=== PATIENT | male | born 1965 | race Caucasian/White ===

== ENCOUNTER 2019-12-11 20:42 | Inpatient (IN) | payer SELFPAY ==
[2019-12-11 21:04] VITALS: BMI 23.7
--- NOTE | 2019-12-11 21:16 | PDOC ---
Documentation entered by Anastasia Wakefield SCRIBE, acting as scribe for Rebeka Seo MD. Rebeka Seo MD: This documentation has been prepared by the scribe, Anastasia Wakefield SCRIBE, under my direction and personally reviewed by me in its entirety. I confirm that the documentation accurately reflects all work, treatment, procedures, and medical decision making performed by me. Attending Attestation - Resident Resident Name: Savanah Sweet - ED Attending Attestation I have performed the following: I have examined & evaluated the patient, The case was reviewed & discussed with the resident, I agree w/resident's findings & plan, Exceptions are as noted - HPI HPI: 54-year-old male brought in by ambulance from home for swelling of both hands and his feet. HPI he stated that he was busy cutting trees last Tuesday and on had pain and took 8 tablets of Tylenol that was 650 mg each. Then on Tuesday he started to see swelling in his hands and then later in his feet ROS he denies fever or chills or nausea or vomiting or diarrhea shortness of breath or chest pain Allergies: NKDA 12/11/19 21:14 12/11/19 21:15 - Physicial Exam PE: 12/11/19 21:16 wnwd 54 yo male p/w swollen hands and feet head ncat neck no jvd lungs cta b/l cvs [id number] abdomen no tenderness Extremities hand are both edematous, no erythema, no lesions, no rash. 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 [employer] 12/11/19 21:31 he does not see a physician ekg Sinus tachy@ 107 with mxHeros,inc rbbb 12/11/19 23:35 Review of labs reveal hyponatremia, elevated BUN,elevated lfts, crp=19 12/12/19 00:05 pt has now low grade fever, IV tylenol given Both Ferritin and LDH are elevated repeat k=3.9 COVID swab ordered and pt will be admitted 12/12/19 01:02 12/12/19 01:07 Concern for inflammatory/autoimmune illness Discharge - Discharge Information Problems reviewed: Yes Clinical Impression/Diagnosis: Bilateral hand swelling, Pulmonary HTN Acute respiratory failure Qualifiers: Respiratory failure complication: hypoxia Qualified Code(s): J96.01 - Acute respiratory failure with hypoxia RLL pneumonia Qualifiers: Pneumonia type: due to unspecified organism Qualified Code(s): J18.9 - Pneumonia, unspecified organism Condition: Improved - Admission Yes - Follow up/Referral - Patient Discharge Instructions - Post Discharge Activity
--- NOTE | 2019-12-11 22:06 | PDOC ---
History of Present Illness - General Chief Complaint: Edema Stated Complaint: ALLERGIC REACTION Time Seen by Provider: 12/11/19 20:47 - History of Present Illness Initial Comments: Pt is a 54yo M with no significant PMH who presents with swelling. Pt states that he took 9-10 650mg Tylenol tablets on because he was in a lot of pain following a hard day of work on Tuesday. States that he noticed b/l hand swelling initially on Tuesday, followed by b/l feet swelling on Tuesday. States that he called his family doctor in [place] on Tuesday who told him the swelling should go away on its own. States that today, he was immobile in bed all day, which prompted his call for an ambulance today. States the his whole body feels stiff associated with ankle and wrist stiffness with lower back stiffness. Reports that he was unable to eat or drink today due to his immobility. States that his urine today was dark. Denies any f/c, SOB, mouth or throat swelling, abdominal pain, n/v, diarrhea/constipation, melena/hematoche selena, dysuria, hematuria. 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 [employer] Review of Systems CONSTITUTIONAL:denies fever, chills, diaphoresis, generalized weakness, loss of appetite HEENT:denies rhinorrhea, nasal congestion, sore throat, throat swelling, difficulty swallowing, mouth swelling, ear pain, eye pain, visual Changes; denies change in voice CARDIOVASCULAR:denies chest pain, syncope, palpitations, lightheadedness, peripheral edema RESPIRATORY:denies cough, shortness of breath, wheezing GASTROINTESTINAL: denies abdominal pain, nausea, vomiting, diarrhea, constipation, melena, hematochezia GENITOURINARY:denies dysuria, frequency, urgency, hesitancy, hematuria, flank pain MUSCULOSKELETAL: reports diffuse stiffness, back pain; denies myalgia, arthralgia HEMATOLOGIC/IMMUNOLOGIC:denies easy bleeding, easy bruising ENDOCRINE: denies unexplained weight gain, unexplained weight loss NEUROLOGIC:denies headache, loss of consciousness, focal weakness or paresthesias, dizziness, unsteady gait, mental status changes, bladder or bowel incontinence SKIN:denies rash, itching, pallor Physical Exam General: awake, alert, fully oriented, in mild distress, well developed, well nourished Head: normocephalic, atraumatic Eyes: PERRL, EOMI, anicteric sclera, conjunctiva clear ENT: hearing grossly normal, nares patent, oropharynx clear without exudates. No nasal congestion, Moist mucous membranes, no lip/tongue swelling Neck: supple, normal ROM, no LAD, JVD or masses, no stridor Lung: equal breath sounds b/l, CTA b/l, no crackles, wheezes; no distress, speaks full sentences Heart: tachycardic, normal S1, S2, no murmurs, rubs, gallops Abdomen: soft, non tender, normoactive bowel sounds, no guarding, rebound, masses Extremities: limited active ROM about b/l hands, radial/DP/PT pulses 2+ and symmetric Neuro: moves all extremities, normal speech, sensation intact Skin: flushing appreciated at neck, warm, edematous, erythematous in b/l hands up to wrists and b/l feet up to ankles. Past History - Medical History Allergies/Adverse Reactions: Allergies Allergy/AdvReac Type Severity Reaction Status Date / Time No Known Allergies Allergy Verified 12/11/19 22:57 Home Medications: Ambulatory Orders NK [No Known Home Medication] 12/12/19 - Psycho-Social/Smoking History Smoking History: Never smoked Have you smoked in the past 12 months: No Information on smoking cessation initiated: No - Substance Abuse Hx (Audit-C & DAST Scrn) How often the patient has a drink containing alcohol: Monthly or less Number of drinks the patient has on a typical day: 1 or 2 How often the patient has six or more drinks on one occasion: Less than monthly Score: In Men: 4 or > Positive; In Women: 3 or > Positive: 2 Screen Result (Pos requires Nsg. Audit-10AR): Negative In the last yr the pt used illegal drug/Rx for NonMed reason: No Score: Yes response is considered Positive: 0 Screen Result (Positive result requires Nsg. DAST-10): Negative *Physical Exam - Vital Signs Last Vital Signs Temp Pulse Resp BP Pulse Ox 98.1 F 110 H 18 134/99 96 12/11/19 20:45 12/11/19 20:45 12/11/19 20:45 12/11/19 20:45 12/11/19 20:45 ED Treatment Course - LABORATORY CBC & Chemistry Diagram: 12/14/19 06:45 12/14/19 06:45 Medical Decision Making - Medical Decision Making Pt is a 54yo M with no significant PMH who presents with swelling of b/l hands and feet Vital Signs Period Temp Pulse Resp BP Sys/Avila Pulse Ox Last 24 Hr 98.1 F 110 18 134/99 96 DDx: allergic reaction Plan: labs, EKG EKG: sinus tachycardia with occasional PVC. Incomplete RBBB, L anterior fascicular block; HR 107bpm, AR 168ms, QRS 110ms, QTc 472ms Pt signed out to night team, pending labs, likely admission Discharge - Discharge Information Problems reviewed: Yes Clinical Impression/Diagnosis: Bilateral hand swelling, Pulmonary HTN Acute respiratory failure Qualifiers: Respiratory failure complication: hypoxia Qualified Code(s): J96.01 - Acute respiratory failure with hypoxia RLL pneumonia Qualifiers: Pneumonia type: due to unspecified organism Qualified Code(s): J18.9 - Pneumonia, unspecified organism Condition: Improved - Admission Yes - Follow up/Referral - Patient Discharge Instructions - Post Discharge Activity
--- NOTE | 2019-12-11 22:11 | PDOC ---
*Physical Exam - Vital Signs Last Vital Signs Temp Pulse Resp BP Pulse Ox 98.1 F 110 H 18 134/99 96 12/11/19 20:45 12/11/19 20:45 12/11/19 20:45 12/11/19 20:45 12/11/19 20:45 ED Treatment Course - LABORATORY CBC & Chemistry Diagram: 12/11/19 21:42 12/11/19 23:50 Medical Decision Making - Medical Decision Making 12/11/19 22:10 EKG - sinus tachycardia w occasional PVCs, RBBB, L anterior fascicular block, HR 107, QTc 472, no ST changes CXR - no acute pathology Chest CT - dilated main pulm artery 3.7cm suggesting pulm HTN, RLL atelectasis vs PNA WBC 12 w L shift --- Signed out from day team 54yo M with no significant PMH who presents with 5d swelling/stiffness of b/l hands and feet after taking tylenol. Neurovascular intact Autoimmune vs infectious vs covid vs liver/kidney dysfunction (nephrotic?). elevated inflammatory markers. Also No sign of tylenol/aspirin overdose vs UTI (clean) 1. Acute respiratory failure 2/2 RLL PNA, desat 93 on RA 2. hypoNa +amphetamines, opioid Given 2L NS, tylenol, 2 morphine, azithromycin, rocephin. Started 3L NC Admit m/s for acute respiratory failure requiring O2, RLL PNA, hand/feet swelling, suspected pulm arterial HTN No PCP Discharge - Discharge Information Problems reviewed: Yes Clinical Impression/Diagnosis: Bilateral hand swelling, Pulmonary HTN Acute respiratory failure Qualifiers: Respiratory failure complication: hypoxia Qualified Code(s): J96.01 - Acute respiratory failure with hypoxia RLL pneumonia Qualifiers: Pneumonia type: due to unspecified organism Qualified Code(s): J18.9 - Pneumonia, unspecified organism Condition: Improved - Follow up/Referral - Patient Discharge Instructions - Post Discharge Activity
[2019-12-11] MEDS ORDERED: LACTATED RINGERS SOLUTION 1000 ML INFUS.BAG IV ONE (22:45)
[2019-12-11 22:55] LABS: BASO % 0.2 % (0-2.0); HEMATOCRIT 43.1 % (35.4-49); HEMOGLOBIN 14.4 GM/dL (11.7-16.9); LYMPH % 4.9 % (8-40); MCH 30.4 pg (25.7-33.7); MCHC 33.4 g/dl (32.0-35.9); MEAN CELL VOLUME 90.9 fl (80-96); MEAN PLT VOLUME 8.9 fl (7.5-11.1); MONO % 9.4 % (3.8-10.2); NEUT % 85.5 % (42.8-82.8); PLATELET COUNT 238 K/MM3 (134-434); RBC 4.74 M/mm3 (4.00-5.60); RDW 14.4 % (11.9-15.9); WHITE BLOOD COUNT 12.9 K/mm3 (4.0-10.0)
[2019-12-11] MEDS ORDERED: MORPHINE SULFATE 2 MG/ML VIAL IVPUSH ONE (22:55)
[2019-12-11] MEDS ORDERED: MORPHINE SULFATE 2 MG/ML VIAL ONE (22:58)
[2019-12-11 23:26] LABS: ALBUMIN 2.1 g/dl (3.4-5.0); ALK PHOS 75 U/L (45-117); BILIRUBIN,TOTAL 1.4 mg/dL (0.2-1); BLOOD UREA NITROGEN 30.7 mg/dL (7-18); CALCIUM 8.4 mg/dL (8.5-10.1); CHLORIDE 90 mmol/L (98-107); CO2 29 mmol/L (21-32); CREATININE 0.8 mg/dL (0.55-1.3); GLUCOSE,RANDOM 111 mg/dL (74-106); SGOT/AST 98 U/L (15-37); SODIUM 127 mmol/L (136-145); TOT PROT 6.4 g/dl (6.4-8.2)
[2019-12-11 23:36] LABS: ANION GAP 8 MMOL/L (8-16); SGPT/ALT 45 U/L (13-61)
[2019-12-11 23:37] LABS: POTASSIUM 6.8 mmol/L (3.5-5.1)
[2019-12-12] MEDS ORDERED: LACTATED RINGERS SOLUTION 1000 ML INFUS.BAG IV ONE
[2019-12-12] MEDS ORDERED: ACETAMINOPHEN 1000 MG/100 ML VIAL (NON FORMULARY) IVPB ONE (00:01)
[2019-12-12] MEDS ORDERED: SODIUM CHLORIDE 0.9% 500 ML INFUS.BAG IV ONE (00:06)
[2019-12-12] MEDS ORDERED: ACETAMINOPHEN INJECTION 100 ML IVPB ONE (00:08)
[2019-12-12 00:50] LABS: BLOOD UREA NITROGEN 29.2 mg/dL (7-18); CALCIUM 8.1 mg/dL (8.5-10.1); CREATININE 0.7 mg/dL (0.55-1.3); POTASSIUM 3.9 mmol/L (3.5-5.1)
[2019-12-12 00:50] LABS: EPI CELLS 13 /uL (0-25.1); HYALINE CASTS 5 /uL (0-3.1); PH,URINE 5.5 (5.0-8.0); URINE APPEARANCE CLEAR; URINE BACTERIA 8 /uL (0-1359); URINE BILIRUBIN NEGATIVE (NEGATIVE); URINE COLOR YELLOW; URINE GLUCOSE (UA) NEGATIVE (NEGATIVE); URINE KETONE NEGATIVE (NEGATIVE); URINE LEUK ESTERASE NEGATIVE (NEGATIVE); URINE NITRITE NEGATIVE (NEGATIVE); URINE PROTEIN 2+ (NEGATIVE); URINE RBC 5 /uL (0-23.9); URINE WBC 8 /uL (0-25.8)
[2019-12-12 00:57] LABS: COCAINE, UR NEGATIVE ng/ml (CUTOFF=300); PHENCYCLIDINE,URINE NEGATIVE ng/ml (CUTOFF=25); URINE BARBITURATES NEGATIVE ng/ml (CUTOFF=200)
[2019-12-12 01:13] LABS: METHADONE, UR NEGATIVE ng/ml (CUTOFF=300); URINE BENZODIAZEPINES NEGATIVE ng/ml (CUTOFF=200)
[2019-12-12 01:42] LABS: OPIATES, URI POSITIVE ng/ml (CUTOFF=300); URINE AMPHETAMINES POSITIVE ng/ml (CUTOFF=500)
[2019-12-12] MEDS ORDERED: CEFTRIAXONE 1 GM in DEXTROSE 5%-WATER - 100 ML IVPB ONE (04:08)
[2019-12-12] MEDS ORDERED: AZITHROMYCIN IVPB 500 MG in DEXTROSE 5%-WATER - 250 ML IVPB ONE (04:08)
[2019-12-12] MEDS ORDERED: DEXAMETHASONE SOD PHOSPHATE 10 MG/1 ML VIAL IVPUSH ONE (04:23)
[2019-12-12] MEDS ORDERED: AZITHROMYCIN IVPB 500 MG/250 ML BAG IVPB ONE (05:02)
[2019-12-12] MEDS ORDERED: CEFTRIAXONE 1 GM/50 ML BAG ONE ×3 (05:03→09:28)
[2019-12-12] MEDS ORDERED: DEXAMETHASONE SOD PHOSPHATE 10 MG/1 ML VIAL ONE (05:03)
--- NOTE | 2019-12-12 06:08 | HP ---
CHIEF COMPLAINT: B/L HAND AND FEET SWELLING X 5 DAYS PCP: NONE HISTORY OF PRESENT ILLNESS: Patient is 54yo M with no known PMHx now presenting with B/L hand and feet swelling of 5days duration following clearing and cutting of fallen large trees. Patient took 10 tabs of tylenol containing medication due to generalized body aches experienced a few hours after cutting down the trees. He had no intention of hurting himself when taking these tabs but did so because he had severe body aches. 24 hrs later, he noticed a gradual onset of b/l hand and feet swelling, progressive with associated pain and redness. Pain is aching, non radiating with a similar new pain in his lower back. All with a severity of 10/10 with no known relieving or aggravating factor. He also has generalized body stiffness >> on his back making him unable to walk. When asked, he notes that he has been lying down in bed most of the time and that his inability to work is not because of leg weakness but because his feet are too swollen and tender for him to stand. There is associated passage of coke coloured urine x 3days which he described as "the darkest urine he has ever seen in his life". There is no associated dysuria, frequency, urgency, incontinence, straining, hesitancy or passage of stones. Patient denies recent hx pf insect/animal bite, intake of any other medication, radiology or medical procedures,hx of fall. No hives, wheels, excoriations,excessive sweating,palpiation, SOB, chest pain, chest tightness,cough, wheezing,hemoptysis,weight loss, seizures, LOC, bluish discoloration of the skin, rash or hx of skin redness on sun exposure, itching, eye swelling/redness, facial swelling, neck swelling. No N/V, diarrhea, constipation, passage of black or fresh blood,abdominal pain, jaundice. No recent change in food, clothing, shoes or car, socks. There is no hx of similar condition nor known food, drug or latex allergy. ER course was notable for: (1) Azithromycin 500mg IVP (2)O2 therapy (3)Ceftriaxone 1g (4) Dexa 10mg IV push (5) 1000ml once (6)Acetaminophen 1000mg Recent Travel: None PAST SURGICAL HISTORY: None Social History: Smoking: None Alcohol: 2-3 bottles per sitting, drinks most weeks but not every week Drugs: Denies recreational drug use but has Amphetamine. and opiod in his urine. Opiod like from morphine administered in ER Allergies: None HOME MEDICATIONS: REVIEW OF SYSTEMS Negative except as noted above . Vital Signs - 24 hr 12/11/19 12/12/19 12/12/19 20:45 00:00 00:15 Temperature 98.1 F 100.2 F H Pulse Rate 110 H Pulse Rate [ 105 H Apical] Respiratory 18 18 Rate Blood Pressure 134/99 Blood Pressure 149/99 [Right Arm] O2 Sat by Pulse 96 100 99 Oximetry (%) 12/12/19 04:50 Temperature 99.8 F H Pulse Rate Pulse Rate [ 94 H Apical] Respiratory 16 Rate Blood Pressure Blood Pressure 134/93 [Right Arm] O2 Sat by Pulse 98 Oximetry (%) PHYSICAL EXAMINATION GENERAL: Awake, alert, and fully oriented, in acute painful distress. HEAD: Normal size and non tender EYES: sclera anicteric, conjunctiva= mild hyperemia NECK: Without lymphadenopathy, JVD, or masses. LUNGS: Vesicular breath sounds equal and b/l. No wheezes, and no crackles. No obvious signs of respiratory distress HEART: Regular rate and rhythm, normal S1 and S2 without murmur, rub or gallop. ABDOMEN: Soft,full, normoactive bowel sounds, non tender, no masses, no fluid thrill. No organomegaly MUSCULOSKELETAL: Hyperemic and Tenderness 10/10 b/l hands and feet, new onset tenderness lower back, no sacral edema or decubitus ulcer, No CVA . He finds it challenging to roll to the opposite site during back exam UPPER EXTREMITIES:Warm, well-perfused. hyperemic b/l hands and severely tender hands 10/10. 3+ edema limited to the hands LOWER EXTREMITIES:Warm, well-perfused. hyperemic and severely tender hands 10/10. 3+ edema limited to the feet NEUROLOGICAL: Cranial nerves II-XII intact. Normal speech. Gait and motor strength not performed because patient is unable to stand due to swollen feet and stiff back PSYCHIATRIC: Cooperative. Good eye contact. Appropriate mood and affect but in pain. SKIN: Warm, edematous no rashes. Laboratory Results - last 24 hr 12/11/19 12/11/19 12/11/19 21:42 21:42 21:42 WBC 12.9 H RBC 4.74 Hgb 14.4 Hct 43.1 MCV 90.9 MCH 30.4 MCHC 33.4 RDW 14.4 Plt Count 238 MPV 8.9 Absolute Neuts (auto) 11.0 H Neutrophils % 85.5 H Neutrophils % (Manual) 78.0 Band Neutrophils % 6.0 Lymphocytes % 4.9 L Lymphocytes % (Manual) 7.0 L Monocytes % 9.4 Monocytes % (Manual) 9 Eosinophils % 0.0 Eosinophils % (Manual) 0.0 Basophils % 0.2 Basophils % (Manual) 0.0 Myelocytes % (Man) 0 Promyelocytes % (Man) 0 Blast Cells % (Manual) 0 Nucleated RBC % 0 Metamyelocytes 0 Sodium 127 L Potassium 6.8 H* Chloride 90 L Carbon Dioxide 29 Anion Gap 8 BUN 30.7 H Creatinine 0.8 Est GFR (CKD-EPI)AfAm 119.04 Est GFR (CKD-EPI)NonAf 102.71 Random Glucose 111 H Calcium 8.4 L Ferritin Total Bilirubin 1.4 H AST 98 H ALT 45 Alkaline Phosphatase 75 LD Total Creatine Kinase 148 Troponin I < 0.02 C-Reactive Protein Total Protein 6.4 Albumin 2.1 L Urine Color Urine Appearance Urine pH Ur Specific Crivitz Urine Protein Urine Glucose (UA) Urine Ketones Urine Blood Urine Nitrite Urine Bilirubin Urine Urobilinogen Ur Leukocyte Esterase Urine WBC (Auto) Urine RBC (Auto) Urine Casts (Auto) U Epithel Cells (Auto) Urine Bacteria (Auto) Salicylates < 1.7 L Opiates Screen Methadone Screen Acetaminophen < 2.0 Barbiturate Screen Phencyclidine Screen Ur Amphetamines Screen MDMA (Ecstasy) Screen Benzodiazepines Screen Cocaine Screen U Marijuana (THC) Screen Alcohol, Quantitative < 3 12/11/19 12/11/19 12/12/19 21:42 23:50 00:22 WBC RBC Hgb Hct MCV MCH MCHC RDW Plt Count MPV Absolute Neuts (auto) Neutrophils % Neutrophils % (Manual) Band Neutrophils % Lymphocytes % Lymphocytes % (Manual) Monocytes % Monocytes % (Manual) Eosinophils % Eosinophils % (Manual) Basophils % Basophils % (Manual) Myelocytes % (Man) Promyelocytes % (Man) Blast Cells % (Manual) Nucleated RBC % Metamyelocytes Sodium 131 L Potassium 3.9 Chloride 94 L Carbon Dioxide 29 Anion Gap 8 BUN 29.2 H Creatinine 0.7 Est GFR (CKD-EPI)AfAm 125.75 Est GFR (CKD-EPI)NonAf 108.50 Random Glucose 113 H Calcium 8.1 L Ferritin 655.6 H Total Bilirubin AST ALT Alkaline Phosphatase LD Total 324 H Creatine Kinase Troponin I C-Reactive Protein > 19.0 H Total Protein Albumin Urine Color Yellow Urine Appearance Clear Urine pH 5.5 Ur Specific Crivitz 1.024 Urine Protein 2+ H Urine Glucose (UA) Negative Urine Ketones Negative Urine Blood Negative Urine Nitrite Negative Urine Bilirubin Negative Urine Urobilinogen 1.0 Ur Leukocyte Esterase Negative Urine WBC (Auto) 8 Urine RBC (Auto) 5 Urine Casts (Auto) 5 U Epithel Cells (Auto) 13 Urine Bacteria (Auto) 8 Salicylates Opiates Screen Methadone Screen Acetaminophen Barbiturate Screen Phencyclidine Screen Ur Amphetamines Screen MDMA (Ecstasy) Screen Benzodiazepines Screen Cocaine Screen U Marijuana (THC) Screen Alcohol, Quantitative 12/12/19 00:22 WBC RBC Hgb Hct MCV MCH MCHC RDW Plt Count MPV Absolute Neuts (auto) Neutrophils % Neutrophils % (Manual) Band Neutrophils % Lymphocytes % Lymphocytes % (Manual) Monocytes % Monocytes % (Manual) Eosinophils % Eosinophils % (Manual) Basophils % Basophils % (Manual) Myelocytes % (Man) Promyelocytes % (Man) Blast Cells % (Manual) Nucleated RBC % Metamyelocytes Sodium Potassium Chloride Carbon Dioxide Anion Gap BUN Creatinine Est GFR (CKD-EPI)AfAm Est GFR (CKD-EPI)NonAf Random Glucose Calcium Ferritin Total Bilirubin AST ALT Alkaline Phosphatase LD Total Creatine Kinase Troponin I C-Reactive Protein Total Protein Albumin Urine Color Urine Appearance Urine pH Ur Specific Crivitz Urine Protein Urine Glucose (UA) Urine Ketones Urine Blood Urine Nitrite Urine Bilirubin Urine Urobilinogen Ur Leukocyte Esterase Urine WBC (Auto) Urine RBC (Auto) Urine Casts (Auto) U Epithel Cells (Auto) Urine Bacteria (Auto) Salicylates Opiates Screen Positive A* Methadone Screen Negative Acetaminophen Barbiturate Screen Negative Phencyclidine Screen Negative Ur Amphetamines Screen Positive A* MDMA (Ecstasy) Screen Negative Benzodiazepines Screen Negative Cocaine Screen Negative U Marijuana (THC) Screen Negative Alcohol, Quantitative ASSESSMENT/PLAN: Patient is 54yo M with no known PMHx now presenting with B/L hand and feet swelling of 5days duration following clearing and cutting of fallen large trees which was followed by administration of 10 tabs of tylenol containing medication. #B/L HAND AND FEET SWELLING WITH PROTEINURIA AND HYPOALBUMINEMIA TO R/O INFECTION B/L leg and hand swelling Proteinuria 2+, BUN 29.2 Hx of contact with unknown trees Sudden onset Hypoalbuminemia: 2.1 Suspected RLL pneumonia on Chest CT HIV 4th AB screening Syphylis RPR Hepatitis Profile, Urine culture, Urine proten creatinine ratio Urine antigen for Strep pneumonia and legionella COVID markers assay: D dimer, LDH, CPK. ESR, Ferritin Doxycycline 100mg IV push bid IV Ceftriaxone daily Methylprednisolone 40mg IV bid Abd US Consult nephrology # ACUTE ALLERGY TO UNKNOWN SUBSTANCE vs Auntoimmune induced hemolysis Recent hx of contact with unknown trees New onset b/l hand and feet swelling Recent administration of 10 tabs of tylenol containing meds like percocet but patient not sure Elevated ferritin 655.6 Coke coloured urine x 5 days now clearing Total bilirubin 1.4 LDH 325 Hypoalbuminemia: 2.1 Hyperkalemia Hyponatremia CAROLYNE, Rheu factor, TSH Mg, PO4, K Consult rheumatology Patient may benefit from allergy test #FEN: IVF: LR NPO Monitor electrolyes and replete prn # DISPOSITION: Admit to floor Levonox 40mg SQ daily F/U pending lab results Visit type - Emergency Visit Emergency Visit: Yes ED Registration Date: 12/12/19 Care time: The patient presented to the Emergency Department on the above date and was hospitalized for further evaluation of their emergent condition. - New Patient This patient is new to me today: Yes Date on this admission: 12/12/19 - Critical Care Critical Care patient: No ATTENDING PHYSICIAN STATEMENT I saw and evaluated the patient. I reviewed the resident's note and discussed the case with the resident. I agree with the resident's findings and plan as documented. SUBJECTIVE: OBJECTIVE: ASSESSMENT AND PLAN:
[2019-12-12 06:51] LABS: BASO % 0.1 % (0-2.0); HEMATOCRIT 39.6 % (35.4-49); HEMOGLOBIN 13.4 GM/dL (11.7-16.9); MCH 30.5 pg (25.7-33.7); MCHC 33.8 g/dl (32.0-35.9); MEAN CELL VOLUME 90.2 fl (80-96); MEAN PLT VOLUME 8.2 fl (7.5-11.1); MONO % 8.5 % (3.8-10.2); NEUT % 86.4 % (42.8-82.8); PLATELET COUNT 215 K/MM3 (134-434); RBC 4.39 M/mm3 (4.00-5.60); RDW 14.6 % (11.9-15.9); WHITE BLOOD COUNT 12.7 K/mm3 (4.0-10.0)
--- NOTE | 2019-12-12 07:01 | PN ---
Teaching Attending Note Name of Resident: Maegan Mtz ATTENDING PHYSICIAN STATEMENT I saw and evaluated the patient. I reviewed the resident's note and discussed the case with the resident. I agree with the resident's findings and plan as documented. SUBJECTIVE: 54 years old M with no significant medical history presented to hospital with b/l hand and leg swelling and generalized body stiffness. According to patient he did a lot of yard work on last and after that he started having generalized body aches so he took 9-10 tablets of tylenol 650 mg. He started noticing b/l LE and UE swelling on tuesday which is progressively getting worse along with joint stiffness and some back pain. He aloso mentioned dark/madeline colored urine since then. he denies chest pain, SOB, rash,nausea,vomiting, fever, cough. He couldnt walk today due to joint pains and swelling so decided to come to ED OBJECTIVE: Last Vital Signs Temp Pulse Resp BP Pulse Ox 99.8 F H 94 H 16 134/93 98 12/12/19 04:50 12/12/19 04:50 12/12/19 04:50 12/12/19 04:50 12/12/19 04:50 General: normal built, NAD Head: normocephalic, atraumatic Eyes: PERRL, EOMI, anicteric sclera, conjunctiva clear ENT: hearing grossly normal, nares patent, oropharynx clear without exudates. No nasal congestion, Moist mucous membranes, no lip/tongue swelling Neck: supple, normal ROM, no LAD, JVD or masses, no stridor Lung: equal breath sounds b/l, CTA b/l, no crackles, wheezes; no distress, speaks full sentences Heart: tachycardic, normal S1, S2, no murmurs, rubs, gallops Abdomen: soft, non tender, normoactive bowel sounds, no guarding, rebound, masses Extremities: b/l hand and feet swelling, redness tender to palpation all joints of hands and feet, Feet edema extending to the legs Neuro: moves all extremities, normal speech, sensation intact ASSESSMENT AND PLAN: b/l hand, feet swelling with proteinuria and hypoalbuminemia r/o Nephrotic syndrome r/o autoimmune inflammatory disease r/o COVID infection Hyponatremia Hyperkalemia Suspected RLL pneumonia ( ON CT chest ) Admit to floor send Lipid panel, HIV, Urine proten creatinine ratio COVID markers LDH, D dimer, mg,phos, CPK. ESR, CAROLYNE, TSH, lyme titers IV solumedrol 40 BID Emperic antibiotics Iv ceftriaxone and doxycycline for now Nephrology and rheumatology eval hepatitis profile DVT ppx
[2019-12-12 07:14] LABS: BILIRUBIN,TOTAL 1.4 mg/dL (0.2-1); BLOOD UREA NITROGEN 26.1 mg/dL (7-18); CALCIUM 7.9 mg/dL (8.5-10.1); CREATININE 0.6 mg/dL (0.55-1.3); MAGNESIUM 2.2 mg/dL (1.8-2.4); PHOSPHOROUS 4.1 mg/dL (2.5-4.9); POTASSIUM 3.7 mmol/L (3.5-5.1); TOT PROT 5.5 g/dl (6.4-8.2)
[2019-12-12 08:55] LABS: BILIRUBIN,DIRECT 0.5 mg/dL (0.0-0.2)
[2019-12-12] MEDS ORDERED: PANTOPRAZOLE 40 MG TABLET ONE (09:28)
[2019-12-12] MEDS ORDERED: ENOXAPARIN NA (PORCINE) 40 MG/0.4 ML DISP.SYRIN SQ ONE ×2 (09:28→10:36)
[2019-12-12] MEDS ORDERED: ENOXAPARIN NA (PORCINE) 40 MG/0.4 ML DISP.SYRIN SQ SCH (10:00)
[2019-12-12] MEDS: CEFTRIAXONE 1 GM in DEXTROSE 5%-WATER - 50 ML IVPB SCH (10:04)
[2019-12-12] MEDS ORDERED: methylPREDNISolone NA SUCC 40 MG/1 ML VIAL ONE (10:11)
[2019-12-12] MEDS ORDERED: DOXYCYCLINE HYCLATE 100 MG VIAL ONE ×2 (10:11→22:33)
[2019-12-12] MEDS ORDERED: ENOXAPARIN NA (PORCINE) 80 MG/0.8 ML DISP.SYRIN SQ ONE (10:24)
[2019-12-12] MEDS: methylPREDNISolone NA SUCC 40 MG/1 ML VIAL IVPUSH SCH ×2 (10:35→22:48)
[2019-12-12] MEDS: PANTOPRAZOLE 40 MG TABLET PO SCH (10:35)
[2019-12-12] MEDS: DOXYCYCLINE INJECTION 100 MG in DEXTROSE 5%-WATER 100 ML IVPB SCH ×2 (10:35→22:47)
[2019-12-12 11:57] LABS: PLATELET ESTIMATE NORMAL
[2019-12-12] MEDS: SODIUM CHLORIDE 1,000 ML IV SCH ×2 (12:00→17:44)
--- NOTE | 2019-12-12 12:37 | CONSULT ---
Consult Consult Specialty:: Nephrology Reason for Consultation:: proteinuria - History of Present Illness Chief Complaint: hand and feet swelling History of Present Illness: Pt is a 54 year old male with no pmhx who presents to the ER with bilateral hand and feet swelling. He says he took about 9 or 10 tabs of 650mg tylenol on of last week. He noticed hand and foot swelling on Tuesday. He called his family doctor in [place] on Tuesday who recommended to wait and observe. He complains of associated weekness. He was found to have proteinuria. He was also found to have hyperkalemia. He denies shortness of breath or cough. He denies dysuria or hematuria. He says that his urine was dark. He denies taking any drugs or other meds. He denies allergies. - History Source History Provided By: Patient - Smoking History Smoking history: Never smoked Have you smoked in the past 12 months: No Home Medications - Allergies Allergies/Adverse Reactions: Allergies Allergy/AdvReac Type Severity Reaction Status Date / Time No Known Allergies Allergy Verified 12/11/19 22:57 - Home Medications Home Medications: Ambulatory Orders NK [No Known Home Medication] 12/12/19 Family Medical History Family History: Denies Review of Systems - Review of Systems Constitutional: reports: Loss of Appetite, Malaise, Weakness Eyes: reports: No Symptoms HENT: reports: No Symptoms Neck: reports: No Symptoms Cardiovascular: reports: No Symptoms Respiratory: reports: No Symptoms Gastrointestinal: reports: No Symptoms Genitourinary: reports: No Symptoms Musculoskeletal: reports: No Symptoms Integumentary: reports: No Symptoms Neurological: reports: No Symptoms Endocrine: reports: No Symptoms Hematology/Lymphatic: reports: No Symptoms Psychiatric: reports: No Symptoms Physical Exam Vital Signs: Vital Signs Temperature 99.8 F H 12/12/19 04:50 Pulse Rate 97 H 12/12/19 07:45 Respiratory Rate 20 12/12/19 07:45 Blood Pressure 147/110 H 12/12/19 07:45 O2 Sat by Pulse Oximetry (%) 97 12/12/19 07:45 Constitutional: Yes: Calm Eyes: Yes: Conjunctiva Clear HENT: Yes: Atraumatic Cardiovascular: Yes: S1, S2 Respiratory: Yes: CTA Bilaterally Gastrointestinal: Yes: Soft Renal/: Yes: WNL Edema: Yes (hands and feet) Neurological: Yes: Oriented Psychiatric: Yes: Oriented Labs: CBC, BMP 12/12/19 06:10 12/12/19 06:10 Laboratory Tests 12/11/19 12/11/19 12/11/19 21:42 21:42 21:42 WBC 12.9 H D-Dimer Sodium 127 L Potassium 6.8 H* BUN Creatinine 0.8 Calcium 8.4 L Ferritin Total Bilirubin Direct Bilirubin LD Total C-Reactive Protein > 19.0 H Urine Protein Ur Random Creatinine U Random Total Protein Protein/Creatinin Ratio Opiates Screen Ur Amphetamines Screen CAROLYNE Screen Syphilis Serology Lyme Screen IgG & IgM Lyme IgM 23 kDa Band Lyme IgM 39 kDa Band Lyme IgM 41 kDa Band COVID-19 (SUDHA) HIV 1&2 Ag/Ab, 4th Gen 12/11/19 12/12/19 12/12/19 23:50 00:22 00:22 WBC D-Dimer Sodium Potassium 3.9 BUN Creatinine 0.7 Calcium 8.1 L Ferritin 655.6 H Total Bilirubin Direct Bilirubin LD Total 324 H C-Reactive Protein Urine Protein 2+ H Ur Random Creatinine U Random Total Protein Protein/Creatinin Ratio Opiates Screen Positive A* Ur Amphetamines Screen Positive A* CAROLYNE Screen Syphilis Serology Lyme Screen IgG & IgM Lyme IgM 23 kDa Band Lyme IgM 39 kDa Band Lyme IgM 41 kDa Band COVID-19 (SUDHA) HIV 1&2 Ag/Ab, 4th Gen 12/12/19 12/12/19 12/12/19 05:20 06:10 06:10 WBC 12.7 H D-Dimer Sodium 131 L Potassium 3.7 BUN 26.1 H Creatinine 0.6 Calcium 7.9 L Ferritin 755.0 H Total Bilirubin 1.4 H Direct Bilirubin 0.5 H LD Total 251 H C-Reactive Protein 27.3 H Urine Protein Ur Random Creatinine U Random Total Protein Protein/Creatinin Ratio Opiates Screen Ur Amphetamines Screen CAROLYNE Screen Syphilis Serology Lyme Screen IgG & IgM Lyme IgM 23 kDa Band Lyme IgM 39 kDa Band Lyme IgM 41 kDa Band COVID-19 (SUDHA) Pending HIV 1&2 Ag/Ab, 4th Gen 12/12/19 12/12/19 12/12/19 06:10 06:10 06:10 WBC D-Dimer 2530 H Sodium Potassium BUN Creatinine Calcium Ferritin Total Bilirubin Direct Bilirubin LD Total C-Reactive Protein Urine Protein Ur Random Creatinine 91.0 U Random Total Protein 96.9 H Protein/Creatinin Ratio 1.1 Opiates Screen Ur Amphetamines Screen CAROLYNE Screen Pending Syphilis Serology Lyme Screen IgG & IgM Pending Lyme IgM 23 kDa Band Pending Lyme IgM 39 kDa Band Pending Lyme IgM 41 kDa Band Pending COVID-19 (SUDHA) HIV 1&2 Ag/Ab, 4th Gen Pending 12/12/19 06:10 WBC D-Dimer Sodium Potassium BUN Creatinine Calcium Ferritin Total Bilirubin Direct Bilirubin LD Total C-Reactive Protein Urine Protein Ur Random Creatinine U Random Total Protein Protein/Creatinin Ratio Opiates Screen Ur Amphetamines Screen CAROLYNE Screen Syphilis Serology Non-reactive Lyme Screen IgG & IgM Lyme IgM 23 kDa Band Lyme IgM 39 kDa Band Lyme IgM 41 kDa Band COVID-19 (SUDHA) HIV 1&2 Ag/Ab, 4th Gen Imaging - Results Cat Scan: Report Reviewed Problem List - Problems (1) Proteinuria Code(s): R80.9 - PROTEINURIA, UNSPECIFIED (2) Hyperkalemia Code(s): E87.5 - HYPERKALEMIA (3) Hyponatremia Code(s): E87.1 - HYPO-OSMOLALITY AND HYPONATREMIA (4) Bilateral hand swelling Code(s): M79.89 - OTHER SPECIFIED SOFT TISSUE DISORDERS (5) RLL pneumonia Code(s): J18.9 - PNEUMONIA, UNSPECIFIED ORGANISM Qualifiers: Pneumonia type: due to unspecified organism Qualified Code(s): J18.9 - Pneumonia, unspecified organism Assessment/Plan Current Medications Generic Name Dose Route Start Last Admin Trade Name Freq PRN Reason Stop Dose Admin Enoxaparin Sodium 40 mg 12/12/19 10:00 12/12/19 10:35 Lovenox - SQ 40 mg DAILY TIMO Administration Ceftriaxone Sodium 1 gm/ 50 mls @ 100 mls/hr 12/12/19 10:00 12/12/19 10:04 Dextrose IVPB Not Given DAILY TIMO Doxycycline Hyclate 100 mg/ 100 mls @ 100 mls/hr 12/12/19 10:00 12/12/19 10:35 Dextrose IVPB 100 mls/hr BID TIMO Administration Sodium Chloride 1,000 mls @ 75 mls/hr 12/12/19 11:00 Normal Saline - IV ASDIR TIMO Methylprednisolone Sodium Succinate 40 mg 12/12/19 10:00 12/12/19 10:35 Solu-Medrol - IVPUSH 40 mg BID TIMO Administration Pantoprazole Sodium 40 mg 12/12/19 10:00 12/12/19 10:35 Protonix - PO 40 mg DAILY TIMO Administration Tramadol HCl 50 mg 12/12/19 10:30 Ultram - PO Q6H PRN PAIN LEVEL 6-10 Impression 1. bilateral hand and feet swelling 2. proteinuria 3. hyponatremia 4. hyperkalemia 5. positive urine tox 6. weakness 7. leukocytosis 8. elevated esr 9. PNA Plan - start saline - monitor renal function and lytes - repeat ua - will send serologic workup, urine however is negative for blood - follow covid - follow lyme and cultures - rheum eval - cont to observe pt - ID eval
--- NOTE | 2019-12-12 13:10 | PN ---
Teaching Attending Note Name of Resident: Lanre Estrada ATTENDING PHYSICIAN STATEMENT I saw and evaluated the patient. I reviewed the resident's note and discussed the case with the resident. I agree with the resident's findings and plan as documented. SUBJECTIVE: Complains of generalized extremity discomfort and weakness UEs>LEs. No fever/chills. No cough/sputum. No headache/visual disturbance. OBJECTIVE: Low grade temp, Tmax 100.2. Hemodynamicaly stable. Last Vital Signs Temp Pulse Resp BP Pulse Ox 99.8 F H 97 H 20 156/86 97 12/12/19 04:50 12/12/19 07:45 12/12/19 07:45 12/12/19 07:45 12/12/19 07:45 HEENT - Atraumatic, Normocephalic. Heart - S1, S2, RRR Lungs - clear to auscultation Abdomen - Soft, non-tender. Bowel Sounds normal. Extremities - bilateral hand and feet swelling. Bilateral foot patchy ?erythema/hyperemia. No sign of cellulitis. No calf tenderness. Neuro - AAO x 3. Power normal LEs. Power reduced UEs due to discomfort/myalgia. Laboratory Results - last 24 hr 12/11/19 12/11/19 12/11/19 21:42 21:42 21:42 WBC 12.9 H RBC 4.74 Hgb 14.4 Hct 43.1 MCV 90.9 MCH 30.4 MCHC 33.4 RDW 14.4 Plt Count 238 MPV 8.9 Absolute Neuts (auto) 11.0 H Neutrophils % 85.5 H Neutrophils % (Manual) 78.0 Band Neutrophils % 6.0 Lymphocytes % 4.9 L Lymphocytes % (Manual) 7.0 L Monocytes % 9.4 Monocytes % (Manual) 9 Eosinophils % 0.0 Eosinophils % (Manual) 0.0 Basophils % 0.2 Basophils % (Manual) 0.0 Myelocytes % (Man) 0 Promyelocytes % (Man) 0 Blast Cells % (Manual) 0 Nucleated RBC % 0 Metamyelocytes 0 Platelet Estimate ESR D-Dimer Sodium 127 L Potassium 6.8 H* Chloride 90 L Carbon Dioxide 29 Anion Gap 8 BUN 30.7 H Creatinine 0.8 Est GFR (CKD-EPI)AfAm 119.04 Est GFR (CKD-EPI)NonAf 102.71 Random Glucose 111 H Calcium 8.4 L Phosphorus Magnesium Ferritin Total Bilirubin 1.4 H Direct Bilirubin AST 98 H ALT 45 Alkaline Phosphatase 75 LD Total Creatine Kinase 148 Troponin I < 0.02 C-Reactive Protein Total Protein 6.4 Albumin 2.1 L Triglycerides Cholesterol Total LDL Cholesterol HDL Cholesterol TSH Urine Color Urine Appearance Urine pH Ur Specific Moro Urine Protein Urine Glucose (UA) Urine Ketones Urine Blood Urine Nitrite Urine Bilirubin Urine Urobilinogen Ur Leukocyte Esterase Urine WBC (Auto) Urine RBC (Auto) Urine Casts (Auto) U Epithel Cells (Auto) Urine Bacteria (Auto) Ur Random Creatinine U Random Total Protein Protein/Creatinin Ratio Salicylates < 1.7 L Opiates Screen Methadone Screen Acetaminophen < 2.0 Barbiturate Screen Phencyclidine Screen Ur Amphetamines Screen MDMA (Ecstasy) Screen Benzodiazepines Screen Cocaine Screen U Marijuana (THC) Screen Alcohol, Quantitative < 3 Syphilis Serology 12/11/19 12/11/19 12/12/19 21:42 23:50 00:22 WBC RBC Hgb Hct MCV MCH MCHC RDW Plt Count MPV Absolute Neuts (auto) Neutrophils % Neutrophils % (Manual) Band Neutrophils % Lymphocytes % Lymphocytes % (Manual) Monocytes % Monocytes % (Manual) Eosinophils % Eosinophils % (Manual) Basophils % Basophils % (Manual) Myelocytes % (Man) Promyelocytes % (Man) Blast Cells % (Manual) Nucleated RBC % Metamyelocytes Platelet Estimate ESR D-Dimer Sodium 131 L Potassium 3.9 Chloride 94 L Carbon Dioxide 29 Anion Gap 8 BUN 29.2 H Creatinine 0.7 Est GFR (CKD-EPI)AfAm 125.75 Est GFR (CKD-EPI)NonAf 108.50 Random Glucose 113 H Calcium 8.1 L Phosphorus Magnesium Ferritin 655.6 H Total Bilirubin Direct Bilirubin AST ALT Alkaline Phosphatase LD Total 324 H Creatine Kinase Troponin I C-Reactive Protein > 19.0 H Total Protein Albumin Triglycerides Cholesterol Total LDL Cholesterol HDL Cholesterol TSH Urine Color Yellow Urine Appearance Clear Urine pH 5.5 Ur Specific Moro 1.024 Urine Protein 2+ H Urine Glucose (UA) Negative Urine Ketones Negative Urine Blood Negative Urine Nitrite Negative Urine Bilirubin Negative Urine Urobilinogen 1.0 Ur Leukocyte Esterase Negative Urine WBC (Auto) 8 Urine RBC (Auto) 5 Urine Casts (Auto) 5 U Epithel Cells (Auto) 13 Urine Bacteria (Auto) 8 Ur Random Creatinine U Random Total Protein Protein/Creatinin Ratio Salicylates Opiates Screen Methadone Screen Acetaminophen Barbiturate Screen Phencyclidine Screen Ur Amphetamines Screen MDMA (Ecstasy) Screen Benzodiazepines Screen Cocaine Screen U Marijuana (THC) Screen Alcohol, Quantitative Syphilis Serology 12/12/19 12/12/19 12/12/19 00:22 06:10 06:10 WBC 12.7 H RBC 4.39 Hgb 13.4 Hct 39.6 MCV 90.2 MCH 30.5 MCHC 33.8 RDW 14.6 Plt Count 215 MPV 8.2 Absolute Neuts (auto) 10.9 H Neutrophils % 86.4 H Neutrophils % (Manual) 80.2 Band Neutrophils % 4.0 Lymphocytes % 5.0 L Lymphocytes % (Manual) 7.9 L Monocytes % 8.5 Monocytes % (Manual) 7 Eosinophils % 0.0 Eosinophils % (Manual) 0.0 Basophils % 0.1 Basophils % (Manual) 0.0 Myelocytes % (Man) 1 D Promyelocytes % (Man) 0 Blast Cells % (Manual) 0 Nucleated RBC % 0 Metamyelocytes 0 Platelet Estimate Normal ESR D-Dimer Sodium 131 L Potassium 3.7 Chloride 95 L Carbon Dioxide 27 Anion Gap 10 BUN 26.1 H Creatinine 0.6 Est GFR (CKD-EPI)AfAm 133.98 Est GFR (CKD-EPI)NonAf 115.60 Random Glucose 146 H Calcium 7.9 L Phosphorus 4.1 Magnesium 2.2 Ferritin 755.0 H Total Bilirubin 1.4 H Direct Bilirubin 0.5 H AST 43 H ALT 47 Alkaline Phosphatase 71 LD Total 251 H Creatine Kinase 24 L Troponin I C-Reactive Protein 27.3 H Total Protein 5.5 L Albumin 2.0 L Triglycerides 76 Cholesterol 75 Total LDL Cholesterol 44 HDL Cholesterol 12 L TSH 0.66 Urine Color Urine Appearance Urine pH Ur Specific Moro Urine Protein Urine Glucose (UA) Urine Ketones Urine Blood Urine Nitrite Urine Bilirubin Urine Urobilinogen Ur Leukocyte Esterase Urine WBC (Auto) Urine RBC (Auto) Urine Casts (Auto) U Epithel Cells (Auto) Urine Bacteria (Auto) Ur Random Creatinine U Random Total Protein Protein/Creatinin Ratio Salicylates Opiates Screen Positive A* Methadone Screen Negative Acetaminophen Barbiturate Screen Negative Phencyclidine Screen Negative Ur Amphetamines Screen Positive A* MDMA (Ecstasy) Screen Negative Benzodiazepines Screen Negative Cocaine Screen Negative U Marijuana (THC) Screen Negative Alcohol, Quantitative Syphilis Serology 08/04/2012/12/19 12/12/19 06:10 06:10 06:10 WBC RBC Hgb Hct MCV MCH MCHC RDW Plt Count MPV Absolute Neuts (auto) Neutrophils % Neutrophils % (Manual) Band Neutrophils % Lymphocytes % Lymphocytes % (Manual) Monocytes % Monocytes % (Manual) Eosinophils % Eosinophils % (Manual) Basophils % Basophils % (Manual) Myelocytes % (Man) Promyelocytes % (Man) Blast Cells % (Manual) Nucleated RBC % Metamyelocytes Platelet Estimate ESR 55 H D-Dimer 2530 H Sodium Potassium Chloride Carbon Dioxide Anion Gap BUN Creatinine Est GFR (CKD-EPI)AfAm Est GFR (CKD-EPI)NonAf Random Glucose Calcium Phosphorus Magnesium Ferritin Total Bilirubin Direct Bilirubin AST ALT Alkaline Phosphatase LD Total Creatine Kinase Troponin I C-Reactive Protein Total Protein Albumin Triglycerides Cholesterol Total LDL Cholesterol HDL Cholesterol TSH Urine Color Urine Appearance Urine pH Ur Specific Moro Urine Protein Urine Glucose (UA) Urine Ketones Urine Blood Urine Nitrite Urine Bilirubin Urine Urobilinogen Ur Leukocyte Esterase Urine WBC (Auto) Urine RBC (Auto) Urine Casts (Auto) U Epithel Cells (Auto) Urine Bacteria (Auto) Ur Random Creatinine 91.0 U Random Total Protein 96.9 H Protein/Creatinin Ratio 1.1 Salicylates Opiates Screen Methadone Screen Acetaminophen Barbiturate Screen Phencyclidine Screen Ur Amphetamines Screen MDMA (Ecstasy) Screen Benzodiazepines Screen Cocaine Screen U Marijuana (THC) Screen Alcohol, Quantitative Syphilis Serology 12/12/19 06:10 WBC RBC Hgb Hct MCV MCH MCHC RDW Plt Count MPV Absolute Neuts (auto) Neutrophils % Neutrophils % (Manual) Band Neutrophils % Lymphocytes % Lymphocytes % (Manual) Monocytes % Monocytes % (Manual) Eosinophils % Eosinophils % (Manual) Basophils % Basophils % (Manual) Myelocytes % (Man) Promyelocytes % (Man) Blast Cells % (Manual) Nucleated RBC % Metamyelocytes Platelet Estimate ESR D-Dimer Sodium Potassium Chloride Carbon Dioxide Anion Gap BUN Creatinine Est GFR (CKD-EPI)AfAm Est GFR (CKD-EPI)NonAf Random Glucose Calcium Phosphorus Magnesium Ferritin Total Bilirubin Direct Bilirubin AST ALT Alkaline Phosphatase LD Total Creatine Kinase Troponin I C-Reactive Protein Total Protein Albumin Triglycerides Cholesterol Total LDL Cholesterol HDL Cholesterol TSH Urine Color Urine Appearance Urine pH Ur Specific Moro Urine Protein Urine Glucose (UA) Urine Ketones Urine Blood Urine Nitrite Urine Bilirubin Urine Urobilinogen Ur Leukocyte Esterase Urine WBC (Auto) Urine RBC (Auto) Urine Casts (Auto) U Epithel Cells (Auto) Urine Bacteria (Auto) Ur Random Creatinine U Random Total Protein Protein/Creatinin Ratio Salicylates Opiates Screen Methadone Screen Acetaminophen Barbiturate Screen Phencyclidine Screen Ur Amphetamines Screen MDMA (Ecstasy) Screen Benzodiazepines Screen Cocaine Screen U Marijuana (THC) Screen Alcohol, Quantitative Syphilis Serology Non-reactive Current Medications Generic Name Dose Route Start Last Admin Trade Name Freq PRN Reason Stop Dose Admin Enoxaparin Sodium 40 mg 12/12/19 10:00 12/12/19 10:35 Lovenox - SQ 40 mg DAILY TIMO Administration Ceftriaxone Sodium 1 gm/ 50 mls @ 100 mls/hr 12/12/19 10:00 12/12/19 10:04 Dextrose IVPB Not Given DAILY TIMO Doxycycline Hyclate 100 mg/ 100 mls @ 100 mls/hr 12/12/19 10:00 12/12/19 10:35 Dextrose IVPB 100 mls/hr BID TIMO Administration Sodium Chloride 1,000 mls @ 75 mls/hr 12/12/19 11:00 12/12/19 12:00 Normal Saline - IV 75 mls/hr ASDIR TIMO Administration Methylprednisolone Sodium Succinate 40 mg 12/12/19 10:00 12/12/19 10:35 Solu-Medrol - IVPUSH 40 mg BID TIMO Administration Pantoprazole Sodium 40 mg 12/12/19 10:00 12/12/19 10:35 Protonix - PO 40 mg DAILY TIMO Administration Tramadol HCl 50 mg 12/12/19 10:30 Ultram - PO Q6H PRN PAIN LEVEL 6-10 Home Medications Medication Instructions Recorded NK [No Known Home Medication] 12/12/19 ASSESSMENT AND PLAN: 54 year old male with no significant PMH, presents with bilateral hand/foot swelling and generalized myalgia. 1. Bilateral Hand and Feet edema/Generalized Myalgia, etiology unclear ?Rheumatological phenomenon Autoimmune work-up needed Rheumatology consulted ?vascular compromise - for LE Arterial Duplex. 2. Proteinuria/Hypoalbuminemia/Edema Urine protein to creatinine ratio less than threshold for Nephrotic Syndrome Nephrology consulted for further evaluation. Gentle IV hydration. 3. Elevated inflammatory markers including CRP, Ferritin, DDIMER (2523), SpO2 93%RA ?underlying COVID infection, no groundglass opacities on CT Chest. COVID PCR pending. Empiric Steroids started. Pul artery prominent on CT - will also start empiric anticoagulation pending CTA chest and US Duplex LEs to exclude PE/DVT as well as COVID PCR. 4. CAP - R basal consolidation Continue Ceftriaxone/Doxy 5. Hyperkalemia - resolved. 6. Utox - opiate and amphetamine positive. ?opiates sec to morphine given in ED. More extensive drug/substance use history required. DVT Px - Given one dose therapeutic Lovenox. Will start Eliquis this evening.
--- NOTE | 2019-12-12 13:14 | EKG ---
Test Reason : Blood Pressure : / mmHG Vent. Rate : 107 BPM Atrial Rate : 107 BPM P-R Int : 168 ms QRS Dur : 110 ms QT Int : 354 ms P-R-T Axes : 047 -57 055 degrees QTc Int : 472 ms SINUS TACHYCARDIA WITH OCCASIONAL PREMATURE VENTRICULAR COMPLEXES POSSIBLE LEFT ATRIAL ENLARGEMENT INCOMPLETE RIGHT BUNDLE BRANCH BLOCK LEFT ANTERIOR FASCICULAR BLOCK ABNORMAL ECG NO PREVIOUS ECGS AVAILABLE Confirmed by MD HERB, EMILY ([id number]) on 12/12/2019 1:14:26 PM Referred By: Confirmed By:EMILY ESTEVEZ MD
--- NOTE | 2019-12-12 14:32 | PN ---
Physical Exam: SUBJECTIVE: Patient seen and examined in the ED. Patient reports diffuse fatigue with bilateral swelling of his hands and feet. The patient reports urinating dark yellow colored urine first starting after ingesting 10 doses of tylenol on . Patient is incapable of moving his limbs or torso and attributes this to his weakness. OBJECTIVE: Vital Signs Period Temp Pulse Resp BP Sys/Avila Pulse Ox Last 24 Hr 98.1 F-100.2 F 94-110 16-20 134-149/92-110 94-100 GENERAL: The patient is awake, alert, and fully oriented, in no acute distress. HEAD: Normal with no signs of trauma. EYES: PERRL, extraocular movements intact, sclera anicteric, conjunctiva clear. No ptosis. ENT: dry mouth NECK: Trachea midline, full range of motion, supple. LUNGS: Breath sounds equal, clear to auscultation bilaterally, no wheezes, no crackles, no accessory muscle use. HEART: Regular rate and rhythm, S1, S2 without murmur, rub or gallop. ABDOMEN: Soft, nontender, nondistended, normoactive bowel sounds, no guarding, no rebound, no hepatosplenomegaly, no masses. EXTREMITIES: 2+ edema bilateral feet up to calcaneous. Mild erythema on medial calcaneus. Right lower limb cool to touch. Bilateral hand swelling 2+ edema to the wrists. PSYCH: Normal mood, normal affect. SKIN: Warm, dry, normal turgor, no rashes or lesions noted Laboratory Results - last 24 hr 12/11/19 12/11/19 12/11/19 21:42 21:42 21:42 WBC 12.9 H RBC 4.74 Hgb 14.4 Hct 43.1 MCV 90.9 MCH 30.4 MCHC 33.4 RDW 14.4 Plt Count 238 MPV 8.9 Absolute Neuts (auto) 11.0 H Neutrophils % 85.5 H Neutrophils % (Manual) 78.0 Band Neutrophils % 6.0 Lymphocytes % 4.9 L Lymphocytes % (Manual) 7.0 L Monocytes % 9.4 Monocytes % (Manual) 9 Eosinophils % 0.0 Eosinophils % (Manual) 0.0 Basophils % 0.2 Basophils % (Manual) 0.0 Myelocytes % (Man) 0 Promyelocytes % (Man) 0 Blast Cells % (Manual) 0 Nucleated RBC % 0 Metamyelocytes 0 Platelet Estimate ESR D-Dimer Sodium 127 L Potassium 6.8 H* Chloride 90 L Carbon Dioxide 29 Anion Gap 8 BUN 30.7 H Creatinine 0.8 Est GFR (CKD-EPI)AfAm 119.04 Est GFR (CKD-EPI)NonAf 102.71 Random Glucose 111 H Calcium 8.4 L Phosphorus Magnesium Ferritin Total Bilirubin 1.4 H Direct Bilirubin AST 98 H ALT 45 Alkaline Phosphatase 75 LD Total Creatine Kinase 148 Troponin I < 0.02 C-Reactive Protein Total Protein 6.4 Albumin 2.1 L Triglycerides Cholesterol Total LDL Cholesterol HDL Cholesterol TSH Urine Color Urine Appearance Urine pH Ur Specific [place] Urine Protein Urine Glucose (UA) Urine Ketones Urine Blood Urine Nitrite Urine Bilirubin Urine Urobilinogen Ur Leukocyte Esterase Urine WBC (Auto) Urine RBC (Auto) Urine Casts (Auto) U Epithel Cells (Auto) Urine Bacteria (Auto) Ur Random Creatinine U Random Total Protein Protein/Creatinin Ratio Salicylates < 1.7 L Opiates Screen Methadone Screen Acetaminophen < 2.0 Barbiturate Screen Phencyclidine Screen Ur Amphetamines Screen MDMA (Ecstasy) Screen Benzodiazepines Screen Cocaine Screen U Marijuana (THC) Screen Alcohol, Quantitative < 3 Syphilis Serology 12/11/19 12/11/19 12/12/19 21:42 23:50 00:22 WBC RBC Hgb Hct MCV MCH MCHC RDW Plt Count MPV Absolute Neuts (auto) Neutrophils % Neutrophils % (Manual) Band Neutrophils % Lymphocytes % Lymphocytes % (Manual) Monocytes % Monocytes % (Manual) Eosinophils % Eosinophils % (Manual) Basophils % Basophils % (Manual) Myelocytes % (Man) Promyelocytes % (Man) Blast Cells % (Manual) Nucleated RBC % Metamyelocytes Platelet Estimate ESR D-Dimer Sodium 131 L Potassium 3.9 Chloride 94 L Carbon Dioxide 29 Anion Gap 8 BUN 29.2 H Creatinine 0.7 Est GFR (CKD-EPI)AfAm 125.75 Est GFR (CKD-EPI)NonAf 108.50 Random Glucose 113 H Calcium 8.1 L Phosphorus Magnesium Ferritin 655.6 H Total Bilirubin Direct Bilirubin AST ALT Alkaline Phosphatase LD Total 324 H Creatine Kinase Troponin I C-Reactive Protein > 19.0 H Total Protein Albumin Triglycerides Cholesterol Total LDL Cholesterol HDL Cholesterol TSH Urine Color Yellow Urine Appearance Clear Urine pH 5.5 Ur Specific [place] 1.024 Urine Protein 2+ H Urine Glucose (UA) Negative Urine Ketones Negative Urine Blood Negative Urine Nitrite Negative Urine Bilirubin Negative Urine Urobilinogen 1.0 Ur Leukocyte Esterase Negative Urine WBC (Auto) 8 Urine RBC (Auto) 5 Urine Casts (Auto) 5 U Epithel Cells (Auto) 13 Urine Bacteria (Auto) 8 Ur Random Creatinine U Random Total Protein Protein/Creatinin Ratio Salicylates Opiates Screen Methadone Screen Acetaminophen Barbiturate Screen Phencyclidine Screen Ur Amphetamines Screen MDMA (Ecstasy) Screen Benzodiazepines Screen Cocaine Screen U Marijuana (THC) Screen Alcohol, Quantitative Syphilis Serology 12/12/19 12/12/19 12/12/19 00:22 06:10 06:10 WBC 12.7 H RBC 4.39 Hgb 13.4 Hct 39.6 MCV 90.2 MCH 30.5 MCHC 33.8 RDW 14.6 Plt Count 215 MPV 8.2 Absolute Neuts (auto) 10.9 H Neutrophils % 86.4 H Neutrophils % (Manual) 80.2 Band Neutrophils % 4.0 Lymphocytes % 5.0 L Lymphocytes % (Manual) 7.9 L Monocytes % 8.5 Monocytes % (Manual) 7 Eosinophils % 0.0 Eosinophils % (Manual) 0.0 Basophils % 0.1 Basophils % (Manual) 0.0 Myelocytes % (Man) 1 D Promyelocytes % (Man) 0 Blast Cells % (Manual) 0 Nucleated RBC % 0 Metamyelocytes 0 Platelet Estimate Normal ESR D-Dimer Sodium 131 L Potassium 3.7 Chloride 95 L Carbon Dioxide 27 Anion Gap 10 BUN 26.1 H Creatinine 0.6 Est GFR (CKD-EPI)AfAm 133.98 Est GFR (CKD-EPI)NonAf 115.60 Random Glucose 146 H Calcium 7.9 L Phosphorus 4.1 Magnesium 2.2 Ferritin 755.0 H Total Bilirubin 1.4 H Direct Bilirubin 0.5 H AST 43 H ALT 47 Alkaline Phosphatase 71 LD Total 251 H Creatine Kinase 24 L Troponin I C-Reactive Protein 27.3 H Total Protein 5.5 L Albumin 2.0 L Triglycerides 76 Cholesterol 75 Total LDL Cholesterol 44 HDL Cholesterol 12 L TSH 0.66 Urine Color Urine Appearance Urine pH Ur Specific [place] Urine Protein Urine Glucose (UA) Urine Ketones Urine Blood Urine Nitrite Urine Bilirubin Urine Urobilinogen Ur Leukocyte Esterase Urine WBC (Auto) Urine RBC (Auto) Urine Casts (Auto) U Epithel Cells (Auto) Urine Bacteria (Auto) Ur Random Creatinine U Random Total Protein Protein/Creatinin Ratio Salicylates Opiates Screen Positive A* Methadone Screen Negative Acetaminophen Barbiturate Screen Negative Phencyclidine Screen Negative Ur Amphetamines Screen Positive A* MDMA (Ecstasy) Screen Negative Benzodiazepines Screen Negative Cocaine Screen Negative U Marijuana (THC) Screen Negative Alcohol, Quantitative Syphilis Serology 12/12/19 12/12/19 12/12/19 06:10 06:10 06:10 WBC RBC Hgb Hct MCV MCH MCHC RDW Plt Count MPV Absolute Neuts (auto) Neutrophils % Neutrophils % (Manual) Band Neutrophils % Lymphocytes % Lymphocytes % (Manual) Monocytes % Monocytes % (Manual) Eosinophils % Eosinophils % (Manual) Basophils % Basophils % (Manual) Myelocytes % (Man) Promyelocytes % (Man) Blast Cells % (Manual) Nucleated RBC % Metamyelocytes Platelet Estimate ESR 55 H D-Dimer 2530 H Sodium Potassium Chloride Carbon Dioxide Anion Gap BUN Creatinine Est GFR (CKD-EPI)AfAm Est GFR (CKD-EPI)NonAf Random Glucose Calcium Phosphorus Magnesium Ferritin Total Bilirubin Direct Bilirubin AST ALT Alkaline Phosphatase LD Total Creatine Kinase Troponin I C-Reactive Protein Total Protein Albumin Triglycerides Cholesterol Total LDL Cholesterol HDL Cholesterol TSH Urine Color Urine Appearance Urine pH Ur Specific [place] Urine Protein Urine Glucose (UA) Urine Ketones Urine Blood Urine Nitrite Urine Bilirubin Urine Urobilinogen Ur Leukocyte Esterase Urine WBC (Auto) Urine RBC (Auto) Urine Casts (Auto) U Epithel Cells (Auto) Urine Bacteria (Auto) Ur Random Creatinine 91.0 U Random Total Protein 96.9 H Protein/Creatinin Ratio 1.1 Salicylates Opiates Screen Methadone Screen Acetaminophen Barbiturate Screen Phencyclidine Screen Ur Amphetamines Screen MDMA (Ecstasy) Screen Benzodiazepines Screen Cocaine Screen U Marijuana (THC) Screen Alcohol, Quantitative Syphilis Serology 12/12/19 06:10 WBC RBC Hgb Hct MCV MCH MCHC RDW Plt Count MPV Absolute Neuts (auto) Neutrophils % Neutrophils % (Manual) Band Neutrophils % Lymphocytes % Lymphocytes % (Manual) Monocytes % Monocytes % (Manual) Eosinophils % Eosinophils % (Manual) Basophils % Basophils % (Manual) Myelocytes % (Man) Promyelocytes % (Man) Blast Cells % (Manual) Nucleated RBC % Metamyelocytes Platelet Estimate ESR D-Dimer Sodium Potassium Chloride Carbon Dioxide Anion Gap BUN Creatinine Est GFR (CKD-EPI)AfAm Est GFR (CKD-EPI)NonAf Random Glucose Calcium Phosphorus Magnesium Ferritin Total Bilirubin Direct Bilirubin AST ALT Alkaline Phosphatase LD Total Creatine Kinase Troponin I C-Reactive Protein Total Protein Albumin Triglycerides Cholesterol Total LDL Cholesterol HDL Cholesterol TSH Urine Color Urine Appearance Urine pH Ur Specific [place] Urine Protein Urine Glucose (UA) Urine Ketones Urine Blood Urine Nitrite Urine Bilirubin Urine Urobilinogen Ur Leukocyte Esterase Urine WBC (Auto) Urine RBC (Auto) Urine Casts (Auto) U Epithel Cells (Auto) Urine Bacteria (Auto) Ur Random Creatinine U Random Total Protein Protein/Creatinin Ratio Salicylates Opiates Screen Methadone Screen Acetaminophen Barbiturate Screen Phencyclidine Screen Ur Amphetamines Screen MDMA (Ecstasy) Screen Benzodiazepines Screen Cocaine Screen U Marijuana (THC) Screen Alcohol, Quantitative Syphilis Serology Non-reactive Active Medications Generic Name Dose Route Start Last Admin Trade Name Freq PRN Reason Stop Dose Admin Apixaban 5 mg 12/12/19 22:00 Eliquis - PO BID TIMO Ceftriaxone Sodium 1 gm/ 50 mls @ 100 mls/hr 12/12/19 10:00 12/12/19 10:04 Dextrose IVPB Not Given DAILY TIMO Doxycycline Hyclate 100 mg/ 100 mls @ 100 mls/hr 12/12/19 10:00 12/12/19 10:35 Dextrose IVPB 100 mls/hr BID TIMO Administration Sodium Chloride 1,000 mls @ 75 mls/hr 12/12/19 11:00 12/12/19 12:00 Normal Saline - IV 75 mls/hr ASDIR TIMO Administration Methylprednisolone Sodium Succinate 40 mg 12/12/19 10:00 12/12/19 10:35 Solu-Medrol - IVPUSH 40 mg BID TIMO Administration Pantoprazole Sodium 40 mg 12/12/19 10:00 12/12/19 10:35 Protonix - PO 40 mg DAILY TIMO Administration Tramadol HCl 50 mg 12/12/19 10:30 Ultram - PO Q6H PRN PAIN LEVEL 6-10 ASSESSMENT/PLAN: Mr Mancia is a 54M w/o any significant history. The patient presents to the emergency department for persistent myalgia, weakness, and bilateral pitting edema of hands and feet. #2+ pitting edema bilateral hands and feet - Dr. Ghotra consulted (Rheumatology) - rheumatologic serum markers ordered - rh factor/CAROLYNE - Right lower limb cool to touch - lower extremity duplex us ordered for suspicion of DVT - CTA of chest negative for PE - DDimer elevated 2500s - possible microthrombo emboli - suspicious of covid infection #proteinuria - 2+ protein found on UA - nephrotic syndrome less likely - Pt/Cr ratio <3 - Nephrology consulted (Dr. Bearden) - to place patient on michelle IV NS @75mls/hr #COVID - Elevated DDIMER 2500 - elevated ESR55 - CRP >19 - patient satting at 93% on room air - CT scan reveals lower lobe consolidation without Ground glass opacities - patient on solumedrol - COVID testing pending # Community aquired pneumonia - CT scan shows lower lobe consolidation with atelectasis - patient started on ceftriaxone and doxycyclin #Hyperkalemia - 3.2 - repleated #DVT Px - patient received theraputic Lovenox - Will start Eliquis this evening Visit type - Emergency Visit Emergency Visit: Yes ED Registration Date: 12/12/19 Care time: The patient presented to the Emergency Department on the above date and was hospitalized for further evaluation of their emergent condition. - New Patient This patient is new to me today: No - Critical Care Critical Care patient: No - Discharge Referral Referred to [facility] Med P.C.: No ATTENDING PHYSICIAN STATEMENT I saw and evaluated the patient. I reviewed the resident's note and discussed the case with the resident. I agree with the resident's findings and plan as documented. SUBJECTIVE: OBJECTIVE: ASSESSMENT AND PLAN:
[2019-12-12] MEDS ORDERED: APIXABAN 5 MG TABLET PO SCH (22:00)
[2019-12-12] MEDS ORDERED: DEXTROSE 5%-WATER 100 ML IVPB ONE (22:33)
[2019-12-12] MEDS: traMADol HCL 50 MG TABLET PO PRN (22:49)
[2019-12-13] MEDS: traMADol HCL 50 MG TABLET PO PRN ×3 (05:41→18:26)
[2019-12-13 08:34] LABS: BASO % 0.1 % (0-2.0); HEMATOCRIT 39.5 % (35.4-49); LYMPH % 4.6 % (8-40); MCH 29.9 pg (25.7-33.7); MCHC 32.9 g/dl (32.0-35.9); MEAN CELL VOLUME 90.8 fl (80-96); MEAN PLT VOLUME 8.4 fl (7.5-11.1); MONO % 3.9 % (3.8-10.2); NEUT % 91.4 % (42.8-82.8); PLATELET COUNT 257 K/MM3 (134-434); RBC 4.35 M/mm3 (4.00-5.60); RDW 14.7 % (11.9-15.9); WHITE BLOOD COUNT 14.6 K/mm3 (4.0-10.0)
[2019-12-13] MEDS ORDERED: DEXTROSE 5%-WATER 100 ML IVPB ONE ×2 (09:07→20:41)
[2019-12-13] MEDS ORDERED: DOXYCYCLINE HYCLATE 100 MG VIAL ONE ×2 (09:07→20:41)
[2019-12-13] MEDS ORDERED: cefTRIAXone SODIUM 1 GM VIAL ONE (09:08)
[2019-12-13] MEDS ORDERED: DEXTROSE 5%-WATER - 50 ML IVPB ONE (09:08)
[2019-12-13] MEDS: PANTOPRAZOLE 40 MG TABLET PO SCH (09:19)
[2019-12-13] MEDS: DOXYCYCLINE INJECTION 100 MG in DEXTROSE 5%-WATER 100 ML IVPB SCH ×2 (09:19→21:50)
[2019-12-13 09:20] LABS: ALBUMIN 1.8 g/dl (3.4-5.0); BILIRUBIN,TOTAL 0.7 mg/dL (0.2-1); BLOOD UREA NITROGEN 24.2 mg/dL (7-18); CALCIUM 7.7 mg/dL (8.5-10.1); CREATININE 0.5 mg/dL (0.55-1.3); MAGNESIUM 2.2 mg/dL (1.8-2.4); PHOSPHOROUS 3.7 mg/dL (2.5-4.9); TOT PROT 5.2 g/dl (6.4-8.2)
[2019-12-13] MEDS: CEFTRIAXONE 1 GM in DEXTROSE 5%-WATER - 50 ML IVPB SCH (10:10)
--- NOTE | 2019-12-13 10:33 | CON.PULM ---
Consult Consult Specialty:: PULMONARY Referred by:: Dr Cole Reason for Consultation:: pneumonia - History of Present Illness Chief Complaint: extremity swelling History of Present Illness: 54yo male without significant past medical history who was admitted with bilateral upper and lower extremity swelling. Noted to have low grade temps on admission and pt reports sweats as well. No shortness of breath or chest pain. No cough or wheezing. Does report whole body stiffness. Found to have a RLL infiltrate, started on antibiotics. No recent travel or sick contacts. 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 - History Source History Provided By: Patient, Medical Record Limitations to Obtaining History: No Limitations - Smoking History Smoking history: Never smoked Have you smoked in the past 12 months: No Home Medications - Allergies Allergies/Adverse Reactions: Allergies Allergy/AdvReac Type Severity Reaction Status Date / Time No Known Allergies Allergy Verified 12/11/19 22:57 - Home Medications Home Medications: Ambulatory Orders NK [No Known Home Medication] 12/12/19 Review of Systems - Review of Systems Constitutional: reports: Chills, Fever, Loss of Appetite, Weakness Eyes: denies: Recent Change in Vision HENT: denies: Nasal Congestion, Throat Pain Neck: denies: Stiffness, Tenderness Cardiovascular: denies: Chest Pain, Shortness of Breath Respiratory: denies: Cough, Hemoptysis, SOB, Wheezing Gastrointestinal: denies: Abdominal Pain, Nausea, Vomiting Genitourinary: denies: Dysuria, Hematuria Neurological: denies: Dizziness, Headache Endocrine: denies: Unexplained Weight Loss Physical Exam Vital Sings: Vital Signs Temperature 98.4 F 12/13/19 05:49 Pulse Rate 86 12/13/19 05:49 Respiratory Rate 20 12/13/19 05:49 Blood Pressure 103/51 L 12/13/19 05:49 O2 Sat by Pulse Oximetry (%) 97 12/13/19 05:49 Constitutional: Yes: Calm Eyes: Yes: Conjunctiva Clear, EOM Intact HENT: Yes: Atraumatic, Normocephalic Neck: Yes: Supple, Trachea Midline Cardiovascular: Yes: Regular Rate and Rhythm Respiratory: Yes: Diminished (decreased breath sounds at the bases) Labs: CBC, BMP 12/13/19 08:00 12/13/19 08:00 Imaging - Results Chest X-ray: Report Reviewed, Image Reviewed Cat Scan: Report Reviewed, Image Reviewed (RLL infiltrate) Assessment/Plan Pneumonia Hyponatremia Proteinuria r/o Rheumatologic Disease - continue antibiotics - f/u cultures - renal work up in progress - rheum eval - O2 to keep SpO2 >90% - DVT prophylaxis Thank you for this consult Ronal Hilario MD
[2019-12-13] MEDS: SODIUM CHLORIDE 1,000 ML IV SCH (11:43)
[2019-12-13 12:21] LABS: ANISOCYTOSIS 0; MACROCYTOSIS 0; PLATELET ESTIMATE NORMAL
--- NOTE | 2019-12-13 14:04 | PN ---
Teaching Attending Note Name of Resident: Lanre Estrada ATTENDING PHYSICIAN STATEMENT I saw and evaluated the patient. I reviewed the resident's note and discussed the case with the resident. I agree with the resident's findings and plan as documented. SUBJECTIVE:Improvement in generalized extremity discomfort and weakness UEs>LEs. No fever/chills. No cough/sputum. No headache/visual disturbance. OBJECTIVE: Tmax 100.6. Hemodynamicaly stable. Last Vital Signs Temp Pulse Resp BP Pulse Ox 98.4 F 86 20 103/51 L 97 12/13/19 05:49 12/13/19 05:49 12/13/19 05:49 12/13/19 05:49 12/13/19 05:49 Heart - S1, S2, RRR Lungs - clear to auscultation Abdomen - Soft, non-tender. Bowel Sounds normal. Extremities - bilateral hand and feet swelling improving. Bilateral foot patchy ?erythema/hyperemia - improving. No sign of cellulitis or ischemia. No calf tenderness. Neuro - AAO x 3. Power normal LEs. Power reduced UEs due to discomfort/myalgia. Laboratory Results - last 24 hr 12/12/19 12/12/19 12/13/19 05:20 06:10 08:00 WBC 14.6 H RBC 4.35 Hgb 13.0 Hct 39.5 MCV 90.8 MCH 29.9 MCHC 32.9 RDW 14.7 Plt Count 257 MPV 8.4 Absolute Neuts (auto) 13.3 H Neutrophils % 91.4 H Neutrophils % (Manual) 84.8 H Band Neutrophils % 3.0 Lymphocytes % 4.6 L Lymphocytes % (Manual) 5.1 L D Monocytes % 3.9 Monocytes % (Manual) 7 Eosinophils % 0.0 Eosinophils % (Manual) 0.0 Basophils % 0.1 Basophils % (Manual) 0.0 Myelocytes % (Man) 0 D Promyelocytes % (Man) 0 Blast Cells % (Manual) 0 Nucleated RBC % 0 Metamyelocytes 0 Hypochromia 0 Platelet Estimate Normal Polychromasia 1+ Poikilocytosis 0 Anisocytosis 0 Microcytosis 0 Macrocytosis 0 Sodium Potassium Chloride Carbon Dioxide Anion Gap BUN Creatinine Est GFR (CKD-EPI)AfAm Est GFR (CKD-EPI)NonAf Random Glucose Calcium Phosphorus Magnesium Total Bilirubin AST ALT Alkaline Phosphatase Total Protein Albumin COVID-19 (SUDHA) Not detected HIV 1&2 Ag/Ab, 4th Gen Non reactive 12/13/19 08:00 WBC RBC Hgb Hct MCV MCH MCHC RDW Plt Count MPV Absolute Neuts (auto) Neutrophils % Neutrophils % (Manual) Band Neutrophils % Lymphocytes % Lymphocytes % (Manual) Monocytes % Monocytes % (Manual) Eosinophils % Eosinophils % (Manual) Basophils % Basophils % (Manual) Myelocytes % (Man) Promyelocytes % (Man) Blast Cells % (Manual) Nucleated RBC % Metamyelocytes Hypochromia Platelet Estimate Polychromasia Poikilocytosis Anisocytosis Microcytosis Macrocytosis Sodium 137 Potassium 4.0 Chloride 101 Carbon Dioxide 25 Anion Gap 12 BUN 24.2 H Creatinine 0.5 L Est GFR (CKD-EPI)AfAm 144.40 Est GFR (CKD-EPI)NonAf 124.59 Random Glucose 139 H Calcium 7.7 L Phosphorus 3.7 Magnesium 2.2 Total Bilirubin 0.7 AST 45 H ALT 67 H Alkaline Phosphatase 57 Total Protein 5.2 L Albumin 1.8 L COVID-19 (SUDHA) HIV 1&2 Ag/Ab, 4th Gen Current Medications Generic Name Dose Route Start Last Admin Trade Name Freq PRN Reason Stop Dose Admin Ceftriaxone Sodium 1 gm/ 50 mls @ 100 mls/hr 12/12/19 10:00 12/13/19 10:10 Dextrose IVPB 100 mls/hr DAILY TIMO Administration Doxycycline Hyclate 100 mg/ 100 mls @ 100 mls/hr 12/12/19 10:00 12/13/19 09:19 Dextrose IVPB 100 mls/hr BID TIMO Administration Sodium Chloride 1,000 mls @ 75 mls/hr 12/12/19 11:00 12/13/19 11:43 Normal Saline - IV Not Given ASDIR TIMO Pantoprazole Sodium 40 mg 12/12/19 10:00 12/13/19 09:19 Protonix - PO 40 mg DAILY TIMO Administration Tramadol HCl 50 mg 12/12/19 10:30 12/13/19 11:42 Ultram - PO 50 mg Q6H PRN Administration PAIN LEVEL 6-10 Home Medications Medication Instructions Recorded NK [No Known Home Medication] 12/12/19 ASSESSMENT AND PLAN: 54 year old male with no significant PMH, presents with bilateral hand/foot swelling and generalized myalgia. 1. Bilateral Hand and Feet edema/Generalized Myalgia, etiology unclear ?Rheumatological phenomenon Autoimmune work-up needed Rheumatology consulted LE Venous/Arterial Duplex - no thrombosis 2. Proteinuria/Hypoalbuminemia/Edema Urine protein to creatinine ratio less than threshold for Nephrotic Syndrome Nephrology following Gentle IV hydration ongoing. Vasculitis work-up in progress. 3. Elevated inflammatory markers including CRP, Ferritin, DDIMER (2523), SpO2 93%RA COVID PCR negative. No groundglass opacities on CT Chest. CTA negative for PE. Empiric Steroids and AC stopped. 4. CAP - R basal consolidation Continue Ceftriaxone/Doxy Last fever 12/11 at 3pm - will monitor. 5. Hyperkalemia - resolved. 6. Utox - opiate and amphetamine positive. ?opiates sec to morphine given in ED. Patient denies amphetamine use. 7. Mild elevation in LFTs - Abdominal US shows fatty liver - will monitor. DVT Px - Lovenox SQ
--- NOTE | 2019-12-13 14:24 | PN ---
Physical Exam: SUBJECTIVE: Patient seen and examined at bedside. Patient reports imrovement in weakness and limb swelling. Patient reports no overnight events. patient seen by Dr. Ghotra OBJECTIVE: Vital Signs Period Temp Pulse Resp BP Sys/Avila Pulse Ox Last 24 Hr 98 F-100.6 F 86-95 18-20 103-145/51-95 94-97 GENERAL: The patient is awake, alert, and fully oriented, in no acute distress. LUNGS: Breath sounds equal, clear to auscultation bilaterally, no wheezes, no crackles, no accessory muscle use. HEART: Regular rate and rhythm, S1, S2 without murmur, rub or gallop. ABDOMEN: Soft, nontender, nondistended, normoactive bowel sounds, no guarding, no rebound, no hepatosplenomegaly, no masses. EXTREMITIES: 2+ pulses, warm, well-perfused, no edema. SKIN: Warm, dry, normal turgor, no rashes or lesions noted Laboratory Results - last 24 hr 12/12/19 12/12/19 12/13/19 05:20 06:10 08:00 WBC 14.6 H RBC 4.35 Hgb 13.0 Hct 39.5 MCV 90.8 MCH 29.9 MCHC 32.9 RDW 14.7 Plt Count 257 MPV 8.4 Absolute Neuts (auto) 13.3 H Neutrophils % 91.4 H Neutrophils % (Manual) 84.8 H Band Neutrophils % 3.0 Lymphocytes % 4.6 L Lymphocytes % (Manual) 5.1 L D Monocytes % 3.9 Monocytes % (Manual) 7 Eosinophils % 0.0 Eosinophils % (Manual) 0.0 Basophils % 0.1 Basophils % (Manual) 0.0 Myelocytes % (Man) 0 D Promyelocytes % (Man) 0 Blast Cells % (Manual) 0 Nucleated RBC % 0 Metamyelocytes 0 Hypochromia 0 Platelet Estimate Normal Polychromasia 1+ Poikilocytosis 0 Anisocytosis 0 Microcytosis 0 Macrocytosis 0 Sodium Potassium Chloride Carbon Dioxide Anion Gap BUN Creatinine Est GFR (CKD-EPI)AfAm Est GFR (CKD-EPI)NonAf Random Glucose Calcium Phosphorus Magnesium Total Bilirubin AST ALT Alkaline Phosphatase Total Protein Albumin COVID-19 (SUDHA) Not detected HIV 1&2 Ag/Ab, 4th Gen Non reactive 12/13/19 08:00 WBC RBC Hgb Hct MCV MCH MCHC RDW Plt Count MPV Absolute Neuts (auto) Neutrophils % Neutrophils % (Manual) Band Neutrophils % Lymphocytes % Lymphocytes % (Manual) Monocytes % Monocytes % (Manual) Eosinophils % Eosinophils % (Manual) Basophils % Basophils % (Manual) Myelocytes % (Man) Promyelocytes % (Man) Blast Cells % (Manual) Nucleated RBC % Metamyelocytes Hypochromia Platelet Estimate Polychromasia Poikilocytosis Anisocytosis Microcytosis Macrocytosis Sodium 137 Potassium 4.0 Chloride 101 Carbon Dioxide 25 Anion Gap 12 BUN 24.2 H Creatinine 0.5 L Est GFR (CKD-EPI)AfAm 144.40 Est GFR (CKD-EPI)NonAf 124.59 Random Glucose 139 H Calcium 7.7 L Phosphorus 3.7 Magnesium 2.2 Total Bilirubin 0.7 AST 45 H ALT 67 H Alkaline Phosphatase 57 Total Protein 5.2 L Albumin 1.8 L COVID-19 (SUDHA) HIV 1&2 Ag/Ab, 4th Gen Active Medications Generic Name Dose Route Start Last Admin Trade Name Freq PRN Reason Stop Dose Admin Ceftriaxone Sodium 1 gm/ 50 mls @ 100 mls/hr 12/12/19 10:00 12/13/19 10:10 Dextrose IVPB 100 mls/hr DAILY TIMO Administration Doxycycline Hyclate 100 mg/ 100 mls @ 100 mls/hr 12/12/19 10:00 12/13/19 09:19 Dextrose IVPB 100 mls/hr BID TIMO Administration Sodium Chloride 1,000 mls @ 75 mls/hr 12/12/19 11:00 12/13/19 11:43 Normal Saline - IV Not Given ASDIR TIMO Pantoprazole Sodium 40 mg 12/12/19 10:00 12/13/19 09:19 Protonix - PO 40 mg DAILY TIMO Administration Tramadol HCl 50 mg 12/12/19 10:30 12/13/19 11:42 Ultram - PO 50 mg Q6H PRN Administration PAIN LEVEL 6-10 ASSESSMENT/PLAN: Mr Mancia is a 54M w/o any significant history. The patient presents to the emergency department for persistent myalgia, weakness, and bilateral pitting edema of hands and feet. #2+ pitting edema bilateral hands and feet - Dr. Ghotra consulted (Rheumatology) - unknown etiology will continue further autoimmune testing - rheumatologic serum markers ordered - rh factor/CAROLYNE pending - lower extremity duplex us ordered for suspicion of DVT - NEGATIVE #proteinuria - 2+ protein found on UA - nephrotic syndrome less likely - Pt/Cr ratio - Nephrology consulted (Dr. Bearden) - to place patient on michelle IV NS @75mls/hr #COVID -NEGATIVE CT for ground glass opacities - CTA negative for PE - AC discontinued - steroids Discontinued - Elevated DDIMER 2500 - elevated ESR55 - CRP >19 # Community aquired pneumonia - CT scan shows lower lobe consolidation with atelectasis - patient started on ceftriaxone and doxycyclin #DVT Px - SQ lovenox Visit type - Emergency Visit Emergency Visit: Yes ED Registration Date: 12/12/19 Care time: The patient presented to the Emergency Department on the above date and was hospitalized for further evaluation of their emergent condition. - New Patient This patient is new to me today: No - Critical Care Critical Care patient: No - Discharge Referral Referred to [facility] Med P.C.: No ATTENDING PHYSICIAN STATEMENT I saw and evaluated the patient. I reviewed the resident's note and discussed the case with the resident. I agree with the resident's findings and plan as documented. SUBJECTIVE: OBJECTIVE: ASSESSMENT AND PLAN:
--- NOTE | 2019-12-13 14:54 | PN ---
Progress Note, Physician History of Present Illness: Pt seen and examined at bedside. He feels that the edema in his hands and feet is improving. - Current Medication List Current Medications: Active Medications Ceftriaxone Sodium 1 gm/ (Dextrose) 50 mls @ 100 mls/hr IVPB DAILY [facility] Last Admin: 12/13/19 10:10 Dose: 100 mls/hr Documented by: Doxycycline Hyclate 100 mg/ (Dextrose) 100 mls @ 100 mls/hr IVPB BID [facility] Last Admin: 12/13/19 09:19 Dose: 100 mls/hr Documented by: Sodium Chloride (Normal Saline -) 1,000 mls @ 75 mls/hr IV ASDIR [facility] Last Admin: 12/13/19 11:43 Dose: Not Given Documented by: Pantoprazole Sodium (Protonix -) 40 mg PO DAILY [facility] Last Admin: 12/13/19 09:19 Dose: 40 mg Documented by: Tramadol HCl (Ultram -) 50 mg PO Q6H PRN PRN Reason: PAIN LEVEL 6-10 Last Admin: 12/13/19 11:42 Dose: 50 mg Documented by: - Objective Vital Signs: Vital Signs Temperature 98.4 F 12/13/19 14:46 Pulse Rate 69 12/13/19 14:46 Respiratory Rate 20 12/13/19 14:46 Blood Pressure 140/91 12/13/19 14:46 O2 Sat by Pulse Oximetry (%) 97 12/13/19 05:49 Constitutional: Yes: Calm Eyes: Yes: Conjunctiva Clear HENT: Yes: Atraumatic Neck: Yes: Supple Cardiovascular: Yes: S1, S2 Respiratory: Yes: CTA Bilaterally Gastrointestinal: Yes: Normal Bowel Sounds, Soft Genitourinary: Yes: WNL Musculoskeletal: Yes: WNL Edema: Yes (isolated to hands/feet) Edema: LUE: Trace, RUE: Trace, LLE: Trace, RLE: Trace Neurological: Yes: Oriented Psychiatric: Yes: Oriented Labs: CBC, BMP 12/13/19 08:00 12/13/19 08:00 Problem List - Problems (1) Proteinuria Code(s): R80.9 - PROTEINURIA, UNSPECIFIED (2) Hyperkalemia Code(s): E87.5 - HYPERKALEMIA (3) Hyponatremia Code(s): E87.1 - HYPO-OSMOLALITY AND HYPONATREMIA (4) Bilateral hand swelling Code(s): M79.89 - OTHER SPECIFIED SOFT TISSUE DISORDERS (5) RLL pneumonia Code(s): J18.9 - PNEUMONIA, UNSPECIFIED ORGANISM Qualifiers: Qualified Code(s): J18.9 - Pneumonia, unspecified organism Assessment/Plan Current Medications Generic Name Dose Route Start Last Admin Trade Name Freq PRN Reason Stop Dose Admin Ceftriaxone Sodium 1 gm/ 50 mls @ 100 mls/hr 12/12/19 10:00 12/13/19 10:10 Dextrose IVPB 100 mls/hr DAILY TIMO Administration Doxycycline Hyclate 100 mg/ 100 mls @ 100 mls/hr 12/12/19 10:00 12/13/19 09:19 Dextrose IVPB 100 mls/hr BID TIMO Administration Sodium Chloride 1,000 mls @ 75 mls/hr 12/12/19 11:00 12/13/19 11:43 Normal Saline - IV Not Given ASDIR TIMO Pantoprazole Sodium 40 mg 12/12/19 10:00 12/13/19 09:19 Protonix - PO 40 mg DAILY TIMO Administration Tramadol HCl 50 mg 12/12/19 10:30 12/13/19 11:42 Ultram - PO 50 mg Q6H PRN Administration PAIN LEVEL 6-10 Impression 1. bilateral hand and feet swelling 2. proteinuria 3. hyponatremia 4. hyperkalemia 5. positive urine tox 6. weakness 7. leukocytosis 8. elevated esr 9. PNA Plan - lytes are improving - sodium has normalized - repeat ua - follow serologies - pending rheum eval - follow lyme and cultures - rheum eval
--- NOTE | 2019-12-13 20:08 | CONSULT ---
Consult Consult Specialty:: Rheumatology - History of Present Illness History of Present Illness: 54 year old male with no relevant PMHx admitted with diffuse pain and inability to walk. HPI. One week ago, one day after he was clearing and cutting fallen trees, he developed diffuse aches and pains and puffiness in hands and feet. He indicates he took about 9 or 10 tabs of 650 mg Tylenol on of last week. The pain has been severe, and since admission he has not been able to walk. At home he did not have fever and yesterday he had a T max of 100.6 and since then he has not have fever. The patient reports dark urine for 3 days, then with normal color. He denies skin rash, sore throat, shortness of breath, chest pain, abdominal pain or diarrhea. Laboratory work-up revealed a CBC with a WBC of 14.6, Hgb 13, HCT 37.5 and platelets 257. Glucose 139, creatinine 0.5, AST 45, ALT 67, albumin 1.8, T Bilirubin 1.4 and D Bilirubin 0.5. ESR 55, CRP 5.2 and Ferritin 755. CK on admission 148. Urinalysis with protein 2+ and no blood. Lyme, Covid and HIV were negative. CT of the chest reported with significant consolidation/ atelectasis of the RLL with elevation of the right hemidiaphragm. CTA of the chest reported with no embolism. - History Source History Provided By: Patient, Medical Record - Smoking History Smoking history: Never smoked Have you smoked in the past 12 months: No Home Medications - Allergies Allergies/Adverse Reactions: Allergies Allergy/AdvReac Type Severity Reaction Status Date / Time No Known Allergies Allergy Verified 12/11/19 22:57 - Home Medications Home Medications: Ambulatory Orders NK [No Known Home Medication] 12/12/19 Review of Systems - Review of Systems Constitutional: reports: Malaise Eyes: reports: No Symptoms HENT: reports: No Symptoms Neck: reports: No Symptoms Cardiovascular: reports: No Symptoms Respiratory: reports: No Symptoms Gastrointestinal: reports: No Symptoms Musculoskeletal: reports: Other (See HPI) Physical Exam Vital Signs: Vital Signs Temperature 97.8 F 12/13/19 19:09 Pulse Rate 91 H 12/13/19 19:09 Respiratory Rate 18 12/13/19 19:09 Blood Pressure 154/89 12/13/19 19:09 O2 Sat by Pulse Oximetry (%) 96 12/13/19 19:09 Constitutional: Yes: Moderate Distress Eyes: Yes: WNL HENT: Yes: WNL Cardiovascular: Yes: WNL Respiratory: Yes: WNL Gastrointestinal: Yes: WNL Musculoskeletal: Yes: Other (Tenderness and swelling of all PIPs. Mild puffiness in hands. No other active joints. No tenderness in muscles or fibrositic tender points. No tenderness in lower limbs.) Labs: CBC, BMP 12/13/19 08:00 12/13/19 08:00 Laboratory Tests 12/11/19 12/12/19 12/12/19 21:42 00:22 05:20 ESR Ferritin Total Bilirubin Direct Bilirubin AST ALT LD Total Creatine Kinase 148 C-Reactive Protein Total Protein Albumin Ur Specific [place] 1.024 Urine Protein 2+ H Urine Glucose (UA) Negative Urine Ketones Negative Urine Blood Negative Urine Nitrite Negative Urine Bilirubin Negative Urine Urobilinogen 1.0 Ur Leukocyte Esterase Negative Urine WBC (Auto) 8 Urine RBC (Auto) 5 Lyme Screen IgG & IgM COVID-19 ([facility]) Not detected HIV 1&2 Ag/Ab, 4th Gen 12/12/19 12/12/19 12/12/19 06:10 06:10 06:10 ESR 55 H Ferritin 755.0 H Total Bilirubin 1.4 H Direct Bilirubin 0.5 H AST ALT LD Total 251 H Creatine Kinase C-Reactive Protein 27.3 H Total Protein Albumin Ur Specific [place] Urine Protein Urine Glucose (UA) Urine Ketones Urine Blood Urine Nitrite Urine Bilirubin Urine Urobilinogen Ur Leukocyte Esterase Urine WBC (Auto) Urine RBC (Auto) Lyme Screen IgG & IgM <0.91 COVID-19 ([facility]HA) HIV 1&2 Ag/Ab, 4th Gen Non reactive 12/13/19 08:00 ESR Ferritin Total Bilirubin Direct Bilirubin AST 45 H ALT 67 H LD Total Creatine Kinase C-Reactive Protein Total Protein 5.2 L Albumin 1.8 L Ur Specific [place] Urine Protein Urine Glucose (UA) Urine Ketones Urine Blood Urine Nitrite Urine Bilirubin Urine Urobilinogen Ur Leukocyte Esterase Urine WBC (Auto) Urine RBC (Auto) Lyme Screen IgG & IgM COVID-19 ([facility]DA) HIV 1&2 Ag/Ab, 4th Gen Problem List - Problems (1) Inflammatory polyarthropathy of hand Code(s): M06.4 - INFLAMMATORY POLYARTHROPATHY (2) Inflammatory polyarthropathy Assessment/Plan: Inflammatory arthritis involving PIPs, elevated hemidiaphragm (with consolidation or atelectasis), epiosde of dark urine with normal CK, mild LFT elevation and mild proteinuria. Etiology to be determined. Cannor rule out CTD. Serology was requested. I will follow. PT for ambulation. Code(s): M06.4 - INFLAMMATORY POLYARTHROPATHY
[2019-12-13 22:03] LABS: URINE APPEARANCE CLEAR; URINE BILIRUBIN NEGATIVE (NEGATIVE); URINE COLOR YELLOW; URINE GLUCOSE (UA) NEGATIVE (NEGATIVE); URINE KETONE NEGATIVE (NEGATIVE); URINE LEUK ESTERASE NEGATIVE (NEGATIVE); URINE NITRITE NEGATIVE (NEGATIVE); URINE PROTEIN TRACE (NEGATIVE)
[2019-12-14] MEDS ORDERED: PT OWN MED DRAWER 7, Y5N ONE (00:31)
[2019-12-14] MEDS: SODIUM CHLORIDE 1,000 ML IV SCH ×2 (00:34→17:09)
[2019-12-14] MEDS: traMADol HCL 50 MG TABLET PO PRN ×3 (00:34→17:27)
[2019-12-14] MEDS ORDERED: MORPHINE SULFATE 2 MG/ML VIAL IVPUSH ONE (03:18)
[2019-12-14 07:37] LABS: HEMATOCRIT 37.3 % (35.4-49); HEMOGLOBIN 12.6 GM/dL (11.7-16.9); MCHC 33.8 g/dl (32.0-35.9); MEAN CELL VOLUME 91.5 fl (80-96); MEAN PLT VOLUME 8.6 fl (7.5-11.1); PLATELET COUNT 287 K/MM3 (134-434); RBC 4.08 M/mm3 (4.00-5.60); RDW 14.5 % (11.9-15.9); WHITE BLOOD COUNT 12.8 K/mm3 (4.0-10.0)
[2019-12-14 08:03] LABS: BLOOD UREA NITROGEN 23.4 mg/dL (7-18); CALCIUM 7.8 mg/dL (8.5-10.1); CREATININE 0.6 mg/dL (0.55-1.3); MAGNESIUM 2.1 mg/dL (1.8-2.4); PHOSPHOROUS 3.3 mg/dL (2.5-4.9); POTASSIUM 3.8 mmol/L (3.5-5.1)
[2019-12-14] MEDS ORDERED: DEXTROSE 5%-WATER - 50 ML IVPB ONE (11:18)
[2019-12-14] MEDS ORDERED: cefTRIAXone SODIUM 1 GM VIAL ONE (11:18)
[2019-12-14] MEDS ORDERED: DEXTROSE 5%-WATER 100 ML IVPB ONE ×2 (11:18→21:48)
[2019-12-14] MEDS ORDERED: DOXYCYCLINE HYCLATE 100 MG VIAL ONE ×2 (11:18→21:47)
[2019-12-14] MEDS: DOXYCYCLINE INJECTION 100 MG in DEXTROSE 5%-WATER 100 ML IVPB SCH ×2 (11:21→21:50)
[2019-12-14] MEDS: CEFTRIAXONE 1 GM in DEXTROSE 5%-WATER - 50 ML IVPB SCH (11:23)
[2019-12-14] MEDS: PANTOPRAZOLE 40 MG TABLET PO SCH (11:24)
--- NOTE | 2019-12-14 14:16 | PN ---
Teaching Attending Note Name of Resident: Lanre Estrada ATTENDING PHYSICIAN STATEMENT I saw and evaluated the patient. I reviewed the resident's note and discussed the case with the resident. I agree with the resident's findings and plan as documented. SUBJECTIVE: Improvement in generalized extremity discomfort and weakness UEs>LEs. No fever/chills. No cough/sputum. No headache/visual disturbance. OBJECTIVE: Fever resolved. Hemodynamicaly stable. Last Vital Signs Temp Pulse Resp BP Pulse Ox 98 F 87 18 147/96 98 12/14/19 11:12/14/19 11:00 12/14/19 11:00 12/14/19 11:12/14/19 11:00 Heart - S1, S2, RRR Lungs - clear to auscultation Abdomen - Soft, non-tender. Bowel Sounds normal. Extremities - bilateral hand and feet swelling improving. Bilateral foot patchy ?erythema/hyperemia - resolved. No sign of cellulitis or ischemia. No calf tenderness. Neuro - AAO x 3. Power normal LEs. Power reduced UEs due to discomfort/myalgia. Laboratory Results - last 24 hr 12/12/19 12/12/19 12/13/19 06:10 13:28 21:10 WBC RBC Hgb Hct MCV MCH MCHC RDW Plt Count MPV Sodium Potassium Chloride Carbon Dioxide Anion Gap BUN Creatinine Est GFR (CKD-EPI)AfAm Est GFR (CKD-EPI)NonAf Random Glucose Calcium Phosphorus Magnesium Urine Color Urine Appearance Urine pH Ur Specific [place] Urine Protein Urine Glucose (UA) Urine Ketones Urine Blood Urine Nitrite Urine Bilirubin Urine Urobilinogen Ur Leukocyte Esterase Ur Random Creatinine 84.0 U Random Total Protein 32.7 H Protein/Creatinin Ratio 0.4 [place] Screen Negative Double Strand DNA Ab 2 Lyme Screen IgG & IgM <0.91 12/13/19 12/14/19 12/14/19 21:10 06:45 06:45 WBC 12.8 H RBC 4.08 Hgb 12.6 Hct 37.3 MCV 91.5 MCH 31.0 MCHC 33.8 RDW 14.5 Plt Count 287 MPV 8.6 Sodium 137 Potassium 3.8 Chloride 102 Carbon Dioxide 27 Anion Gap 9 BUN 23.4 H Creatinine 0.6 Est GFR (CKD-EPI)AfAm 133.98 Est GFR (CKD-EPI)NonAf 115.60 Random Glucose 79 Calcium 7.8 L Phosphorus 3.3 Magnesium 2.1 Urine Color Yellow Urine Appearance Clear Urine pH 6.0 Ur Specific [place] 1.024 Urine Protein Trace Urine Glucose (UA) Negative Urine Ketones Negative Urine Blood Negative Urine Nitrite Negative Urine Bilirubin Negative Urine Urobilinogen 2.0 Ur Leukocyte Esterase Negative Ur Random Creatinine U Random Total Protein Protein/Creatinin Ratio [place] Screen Double Strand DNA Ab Lyme Screen IgG & IgM Current Medications Generic Name Dose Route Start Last Admin Trade Name Freq PRN Reason Stop Dose Admin Ceftriaxone Sodium 1 gm/ 50 mls @ 100 mls/hr 12/12/19 10:00 12/14/19 11:23 Dextrose IVPB 100 mls/hr DAILY TIMO Administration Doxycycline Hyclate 100 mg/ 100 mls @ 100 mls/hr 12/12/19 10:00 12/14/19 11:21 Dextrose IVPB 100 mls/hr BID TIMO Administration Sodium Chloride 1,000 mls @ 75 mls/hr 12/12/19 11:00 12/14/19 00:34 Normal Saline - IV 75 mls/hr ASDIR TIMO Administration Pantoprazole Sodium 40 mg 12/12/19 10:00 12/14/19 11:24 Protonix - PO 40 mg DAILY TIMO Administration Tramadol HCl 50 mg 12/12/19 10:30 12/14/19 06:14 Ultram - PO 50 mg Q6H PRN Administration PAIN LEVEL 6-10 Home Medications Medication Instructions Recorded NK [No Known Home Medication] 12/12/19 ASSESSMENT AND PLAN: 54 year old male with no significant PMH, presents with bilateral hand/foot swelling and generalized myalgia. 1. Bilateral Hand and Feet edema/Generalized Myalgia, etiology unclear ?Rheumatological phenomenon Autoimmune/Vasculitis work-up pending - CAROLYNE negative Rheumatology consulted LE Venous/Arterial Duplex - no thrombosis PT for eval for safe ambulation. 2. Proteinuria/Hypoalbuminemia/Edema Urine protein to creatinine ratio less than threshold for Nephrotic Syndrome Nephrology following Will stop IV hydration Vasculitis work-up in progress. Will give short Steroid course - received Dexa in ED, followed by Methylprednisone. Will continue on 3 additional days of Prednisone 40mg. 3. Elevated inflammatory markers including CRP, Ferritin, DDIMER (2523), SpO2 93%RA COVID PCR negative. No groundglass opacities on CT Chest. CTA negative for PE. Empiric AC stopped. Will continue Steroid for short course (5 days total). 4. CAP - R basal consolidation Continue Ceftriaxone/Doxy (Day 3) Last fever 8/12 at 3pm - will monitor. 5. Hyperkalemia - resolved. 6. Utox - opiate and amphetamine positive. ?opiate pos sec to morphine given in ED. Patient denies amphetamine use. 7. Mild elevation in LFTs - Abdominal US shows fatty liver - will monitor. DVT Px - Lovenox SQ
--- NOTE | 2019-12-14 14:18 | PN ---
Progress Note, Physician History of Present Illness: pulmonary alert,feeling better,-sob,extremities still swollen - Current Medication List Current Medications: Active Medications Ceftriaxone Sodium 1 gm/ (Dextrose) 50 mls @ 100 mls/hr IVPB DAILY [facility] Last Admin: 12/14/19 11:23 Dose: 100 mls/hr Documented by: Doxycycline Hyclate 100 mg/ (Dextrose) 100 mls @ 100 mls/hr IVPB BID [facility] Last Admin: 12/14/19 11:21 Dose: 100 mls/hr Documented by: Sodium Chloride (Normal Saline -) 1,000 mls @ 75 mls/hr IV ASDIR [facility] Last Admin: 12/14/19 00:34 Dose: 75 mls/hr Documented by: Pantoprazole Sodium (Protonix -) 40 mg PO DAILY [facility] Last Admin: 12/14/19 11:24 Dose: 40 mg Documented by: Tramadol HCl (Ultram -) 50 mg PO Q6H PRN PRN Reason: PAIN LEVEL 6-10 Last Admin: 12/14/19 06:14 Dose: 50 mg Documented by: - Objective Vital Signs: Vital Signs Temperature 98 F 12/14/19 11:00 Pulse Rate 87 12/14/19 11:00 Respiratory Rate 18 12/14/19 11:00 Blood Pressure 147/96 12/14/19 11:00 O2 Sat by Pulse Oximetry (%) 98 12/14/19 11:00 Constitutional: Yes: Well Nourished, Calm Eyes: Yes: WNL HENT: Yes: WNL Neck: Yes: WNL Cardiovascular: Yes: Regular Rate and Rhythm, S1, S2 Respiratory: Yes: CTA Bilaterally Gastrointestinal: Yes: Normal Bowel Sounds, Soft Extremities: Yes: WNL Labs: CBC, BMP 12/14/19 06:45 12/14/19 06:45 Problem List - Problems (1) Bilateral hand swelling Code(s): M79.89 - OTHER SPECIFIED SOFT TISSUE DISORDERS (2) Hyponatremia Code(s): E87.1 - HYPO-OSMOLALITY AND HYPONATREMIA (3) Inflammatory polyarthropathy of hand Code(s): M06.4 - INFLAMMATORY POLYARTHROPATHY (4) RLL pneumonia Code(s): J18.9 - PNEUMONIA, UNSPECIFIED ORGANISM Qualifiers: Pneumonia type: due to unspecified organism Qualified Code(s): J18.9 - Pneumonia, unspecified organism Assessment/Plan Assessment/Plan Pneumonia Hyponatremia improved Proteinuria r/o Rheumatologic Disease - continue antibiotics - f/u cultures - renal work up in progress - rheum eval - O2 to keep SpO2 >90% - DVT prophylaxis DR BARRIENTOS
--- NOTE | 2019-12-14 15:42 | PN ---
Progress Note, Physician History of Present Illness: Pt seen and examined at bedside. He feels edema in hands and feet are improving. - Current Medication List Current Medications: Active Medications Ceftriaxone Sodium 1 gm/ (Dextrose) 50 mls @ 100 mls/hr IVPB DAILY [facility] Last Admin: 12/14/19 11:23 Dose: 100 mls/hr Documented by: Doxycycline Hyclate 100 mg/ (Dextrose) 100 mls @ 100 mls/hr IVPB BID [facility] Last Admin: 12/14/19 11:21 Dose: 100 mls/hr Documented by: Sodium Chloride (Normal Saline -) 1,000 mls @ 75 mls/hr IV ASDIR [facility] Last Admin: 12/14/19 00:34 Dose: 75 mls/hr Documented by: Pantoprazole Sodium (Protonix -) 40 mg PO DAILY [facility] Last Admin: 12/14/19 11:24 Dose: 40 mg Documented by: Prednisone (Deltasone -) 40 mg PO DAILY [facility] Tramadol HCl (Ultram -) 50 mg PO Q6H PRN PRN Reason: PAIN LEVEL 6-10 Last Admin: 12/14/19 06:14 Dose: 50 mg Documented by: - Objective Vital Signs: Vital Signs Temperature 98 F 12/14/19 11:00 Pulse Rate 87 12/14/19 11:00 Respiratory Rate 18 12/14/19 11:00 Blood Pressure 147/96 12/14/19 11:00 O2 Sat by Pulse Oximetry (%) 98 12/14/19 11:00 Constitutional: Yes: Calm Eyes: Yes: Conjunctiva Clear HENT: Yes: Atraumatic Neck: Yes: Supple Cardiovascular: Yes: S1, S2 Respiratory: Yes: CTA Bilaterally Gastrointestinal: Yes: Normal Bowel Sounds, Soft Genitourinary: Yes: WNL Musculoskeletal: Yes: Muscle Weakness Edema: Yes Edema: LUE: Trace, RUE: Trace, LLE: Trace, RLE: Trace Neurological: Yes: Oriented Psychiatric: Yes: Oriented Labs: CBC, BMP 12/14/19 06:45 12/14/19 06:45 Problem List - Problems (1) Proteinuria Code(s): R80.9 - PROTEINURIA, UNSPECIFIED (2) Hyperkalemia Code(s): E87.5 - HYPERKALEMIA (3) Hyponatremia Code(s): E87.1 - HYPO-OSMOLALITY AND HYPONATREMIA (4) Bilateral hand swelling Code(s): M79.89 - OTHER SPECIFIED SOFT TISSUE DISORDERS (5) RLL pneumonia Code(s): J18.9 - PNEUMONIA, UNSPECIFIED ORGANISM Qualifiers: Pneumonia type: due to unspecified organism Qualified Code(s): J18.9 - Pneumonia, unspecified organism Assessment/Plan Current Medications Generic Name Dose Route Start Last Admin Trade Name Freq PRN Reason Stop Dose Admin Ceftriaxone Sodium 1 gm/ 50 mls @ 100 mls/hr 12/12/19 10:00 12/14/19 11:23 Dextrose IVPB 100 mls/hr DAILY [facility]O Administration Doxycycline Hyclate 100 mg/ 100 mls @ 100 mls/hr 12/12/19 10:00 12/14/19 11:21 Dextrose IVPB 100 mls/hr BID TIMO Administration Sodium Chloride 1,000 mls @ 75 mls/hr 12/12/19 11:00 12/14/19 00:34 Normal Saline - IV 75 mls/hr ASDIR [facility] Administration Pantoprazole Sodium 40 mg 12/12/19 10:00 12/14/19 11:24 Protonix - PO 40 mg DAILY TIMO Administration Prednisone 40 mg 12/14/19 14:30 Deltasone - PO DAILY [facility] Tramadol HCl 50 mg 12/12/19 10:30 12/14/19 06:14 Ultram - PO 50 mg Q6H PRN Administration PAIN LEVEL 6-10 Laboratory Tests 12/11/19 12/12/19 12/12/19 21:42 00:22 06:10 Neutrophils % 85.5 H Urine Protein 2+ H Protein/Creatinin Ratio 1.1 PAUL M-Vikash [place] Screen c-ANCA Proteinase 3 (PR3) p-ANCA Atypical p-ANCA Myeloperoxidase Ab Double Strand DNA Ab Glomerular Base Memb Ab 12/12/19 12/12/19 12/12/19 06:10 13:28 13:28 Neutrophils % Urine Protein Protein/Creatinin Ratio PAUL M-Vikash Pending [place] Screen Negative c-ANCA Pending Proteinase 3 (PR3) Pending p-ANCA Pending Atypical p-ANCA Pending Myeloperoxidase Ab Pending Double Strand DNA Ab 2 Glomerular Base Memb Ab Pending 12/13/19 12/13/19 21:10 21:10 Neutrophils % Urine Protein Trace Protein/Creatinin Ratio 0.4 PAUL M-Vikash [place] Screen c-ANCA Proteinase 3 (PR3) p-ANCA Atypical p-ANCA Myeloperoxidase Ab Double Strand DNA Ab Glomerular Base Memb Ab Impression 1. bilateral hand and feet swelling 2. proteinuria 3. hyponatremia 4. hyperkalemia 5. positive urine tox 6. weakness 7. leukocytosis 8. elevated esr 9. PNA Plan - renal function stable - repeat ua is improved - pt still with weakness - rheum follow up - serologies are still pending - pending rheum eval - follow lyme and cultures
--- NOTE | 2019-12-14 17:20 | PN ---
Physical Exam: SUBJECTIVE: Patient seen and examined OBJECTIVE: Vital Signs Period Temp Pulse Resp BP Sys/[place]ila Pulse Ox Last 24 Hr 97.8 F-98.7 F 85-91 18-19 145-154/86-114 95-98 GENERAL: The patient is awake, alert, and fully oriented, in no acute distress. HEAD: Normal with no signs of trauma. EYES: PERRL, extraocular movements intact, sclera anicteric, conjunctiva clear. No ptosis. ENT: Ears normal, nares patent, oropharynx clear without exudates, moist mucous membranes. NECK: Trachea midline, full range of motion, supple. LUNGS: Breath sounds equal, clear to auscultation bilaterally, no wheezes, no crackles, no accessory muscle use. HEART: Regular rate and rhythm, S1, S2 without murmur, rub or gallop. ABDOMEN: Soft, nontender, nondistended, normoactive bowel sounds, no guarding, no rebound, no hepatosplenomegaly, no masses. EXTREMITIES: 2+ pulses, warm, well-perfused, no edema. NEUROLOGICAL: Cranial nerves II through XII grossly intact. Normal speech, gait not observed. PSYCH: Normal mood, normal affect. SKIN: Warm, dry, normal turgor, no rashes or lesions noted Laboratory Results - last 24 hr 12/12/19 12/12/19 12/13/19 06:10 13:28 21:10 WBC RBC Hgb Hct MCV MCH MCHC RDW Plt Count MPV Sodium Potassium Chloride Carbon Dioxide Anion Gap BUN Creatinine Est GFR (CKD-EPI)AfAm Est GFR (CKD-EPI)NonAf Random Glucose Calcium Phosphorus Magnesium Urine Color Urine Appearance Urine pH Ur Specific [place] Urine Protein Urine Glucose (UA) Urine Ketones Urine Blood Urine Nitrite Urine Bilirubin Urine Urobilinogen Ur Leukocyte Esterase Ur Random Creatinine 84.0 U Random Total Protein 32.7 H Protein/Creatinin Ratio 0.4 [place] Screen Negative Double Strand DNA Ab 2 12/13/19 12/14/19 12/14/19 21:10 06:45 06:45 WBC 12.8 H RBC 4.08 Hgb 12.6 Hct 37.3 MCV 91.5 MCH 31.0 MCHC 33.8 RDW 14.5 Plt Count 287 MPV 8.6 Sodium 137 Potassium 3.8 Chloride 102 Carbon Dioxide 27 Anion Gap 9 BUN 23.4 H Creatinine 0.6 Est GFR (CKD-EPI)AfAm 133.98 Est GFR (CKD-EPI)NonAf 115.60 Random Glucose 79 Calcium 7.8 L Phosphorus 3.3 Magnesium 2.1 Urine Color Yellow Urine Appearance Clear Urine pH 6.0 Ur Specific [place] 1.024 Urine Protein Trace Urine Glucose (UA) Negative Urine Ketones Negative Urine Blood Negative Urine Nitrite Negative Urine Bilirubin Negative Urine Urobilinogen 2.0 Ur Leukocyte Esterase Negative Ur Random Creatinine U Random Total Protein Protein/Creatinin Ratio [place] Screen Double Strand DNA Ab Active Medications Generic Name Dose Route Start Last Admin Trade Name Freq PRN Reason Stop Dose Admin Ceftriaxone Sodium 1 gm/ 50 mls @ 100 mls/hr 12/12/19 10:00 12/14/19 11:23 Dextrose IVPB 100 mls/hr DAILY [facility] Administration Doxycycline Hyclate 100 mg/ 100 mls @ 100 mls/hr 12/12/19 10:00 12/14/19 11:21 Dextrose IVPB 100 mls/hr BID TIMO Administration Pantoprazole Sodium 40 mg 12/12/19 10:00 12/14/19 11:24 Protonix - PO 40 mg DAILY [facility]O Administration Prednisone 40 mg 12/14/19 14:30 Deltasone - PO DAILY [facility] Tramadol HCl 50 mg 12/12/19 10:30 12/14/19 06:14 Ultram - PO 50 mg Q6H PRN Administration PAIN LEVEL 6-10 ASSESSMENT/PLAN: ATTENDING PHYSICIAN STATEMENT I saw and evaluated the patient. I reviewed the resident's note and discussed the case with the resident. I agree with the resident's findings and plan as documented. SUBJECTIVE: OBJECTIVE: ASSESSMENT AND PLAN:
[2019-12-14] MEDS: predniSONE 20 MG TABLET (UD) PO SCH (17:26)
[2019-12-14 18:25] LABS: ALBUMIN 1.9 g/dl (3.4-5.0); BILIRUBIN,DIRECT 0.3 mg/dL (0.0-0.2); BILIRUBIN,TOTAL 0.6 mg/dL (0.2-1); TOT PROT 5.1 g/dl (6.4-8.2)
[2019-12-14 23:06] LABS: HEP B CORE AB, TOT Negative (Negative)
[2019-12-15] MEDS: traMADol HCL 50 MG TABLET PO PRN ×2 (00:57→21:28)
[2019-12-15 06:35] LABS: HEMATOCRIT 39.6 % (35.4-49); HEMOGLOBIN 13.1 GM/dL (11.7-16.9); MCH 30.1 pg (25.7-33.7); MCHC 33.1 g/dl (32.0-35.9); MEAN CELL VOLUME 90.9 fl (80-96); PLATELET COUNT 321 K/MM3 (134-434); RBC 4.36 M/mm3 (4.00-5.60); RDW 14.3 % (11.9-15.9); WHITE BLOOD COUNT 11.5 K/mm3 (4.0-10.0)
[2019-12-15 10:03] LABS: BLOOD UREA NITROGEN 16.2 mg/dL (7-18); CALCIUM 7.8 mg/dL (8.5-10.1); POTASSIUM 4.4 mmol/L (3.5-5.1)
[2019-12-15 10:08] LABS: BILIRUBIN,TOTAL 0.8 mg/dL (0.2-1); CREATININE 0.5 mg/dL (0.55-1.3); TOT PROT 5.4 g/dl (6.4-8.2)
[2019-12-15] MEDS ORDERED: DOXYCYCLINE HYCLATE 100 MG VIAL ONE ×2 (10:08→21:15)
[2019-12-15] MEDS ORDERED: DEXTROSE 5%-WATER 100 ML IVPB ONE ×2 (10:08→21:16)
[2019-12-15] MEDS ORDERED: cefTRIAXone SODIUM 1 GM VIAL ONE ×2 (10:10→10:11)
[2019-12-15] MEDS ORDERED: DEXTROSE 5%-WATER - 50 ML IVPB ONE (10:12)
[2019-12-15] MEDS: predniSONE 20 MG TABLET (UD) PO SCH (10:12)
[2019-12-15] MEDS: PANTOPRAZOLE 40 MG TABLET PO SCH (10:13)
[2019-12-15] MEDS: DOXYCYCLINE INJECTION 100 MG in DEXTROSE 5%-WATER 100 ML IVPB SCH ×2 (10:13→21:31)
[2019-12-15] MEDS: CEFTRIAXONE 1 GM in DEXTROSE 5%-WATER - 50 ML IVPB SCH (10:13)
--- NOTE | 2019-12-15 12:18 | PN ---
Physical Exam: SUBJECTIVE: Patient seen and examined at bedside. He endorses diminishing swelling in his hands, and legs. Endorses feeling stronger today, and is requesting physical therapy. OBJECTIVE: Vital Signs Period Temp Pulse Resp BP Sys/Avila Pulse Ox Last 24 Hr 98.0 F-99.2 F 80-100 18-18 139-152/83-96 91-98 GENERAL: The patient is awake, alert, and fully oriented, in no acute distress. HEAD: Normocephalic, atraumatic. EYES: PERRL, extraocular movements intact, sclera anicteric, conjunctiva clear. ENT: Oropharynx clear, without erythema or exudates. Moist mucous membranes. NECK: Trachea midline, full range of motion. Supple without lymphadenopathy. LUNGS: Breath sounds equal, clear to auscultation bilaterally. No wheezes, no crackles. No accessory muscle use. HEART: Regular rate and rhythm. S1, S2 without murmur, rub or gallop. ABDOMEN: Soft, nondistended, nontender to light and deep palpation x4 quadrants. No rebound tenderness, no guarding. Normoactive bowel sounds x4 quadrants. No hepatosplenomegaly, no masses appreciated. EXTREMITIES: 2+ radial, dorsalis pedis pulses bilaterally. Warm, well-perfused. Nonpitting edema of bilateral hands, and feet below ankle. NEUROLOGICAL: Cranial nerves II through XII grossly intact. Normal speech. No gross focal deficits. PSYCH: Normal mood, normal affect upon my encounter. SKIN: Warm, dry. Laboratory Results - last 24 hr 12/12/19 12/12/19 12/14/19 06:10 13:28 06:45 WBC RBC Hgb Hct MCV MCH MCHC RDW Plt Count MPV Sodium 137 Potassium 3.8 Chloride 102 Carbon Dioxide 27 Anion Gap 9 BUN 23.4 H Creatinine 0.6 Est GFR (CKD-EPI)AfAm 133.98 Est GFR (CKD-EPI)NonAf 115.60 Random Glucose 79 Calcium 7.8 L Phosphorus 3.3 Magnesium 2.1 Total Bilirubin 0.6 Direct Bilirubin 0.3 H AST 38 H ALT 78 H Alkaline Phosphatase 50 Total Protein 5.1 L Albumin 1.9 L Lyme IgM 23 kDa Band No Result Required. Lyme IgM 39 kDa Band No Result Required. Lyme IgM 41 kDa Band No Result Required. Hep A IgM Ab Confirm Negative Hepatitis A Ab Total Negative Hep Bs Antigen Negative Hep Bs Antibody Non reactive Hep B Core Total Ab Negative Hep B Core IgM Ab Negative Hepatitis Be Antibody Negative Hepatitis Be Antigen Negative 12/15/19 12/15/19 05:52 05:57 WBC 11.5 H RBC 4.36 Hgb 13.1 Hct 39.6 MCV 90.9 MCH 30.1 MCHC 33.1 RDW 14.3 Plt Count 321 MPV 8.0 Sodium 138 Potassium 4.4 Chloride 101 Carbon Dioxide 29 Anion Gap 8 BUN 16.2 Creatinine 0.5 L Est GFR (CKD-EPI)AfAm 144.40 Est GFR (CKD-EPI)NonAf 124.59 Random Glucose 98 Calcium 7.8 L Phosphorus Magnesium Total Bilirubin 0.8 Direct Bilirubin AST 29 ALT 78 H Alkaline Phosphatase 55 Total Protein 5.4 L Albumin 2.0 L Lyme IgM 23 kDa Band Lyme IgM 39 kDa Band Lyme IgM 41 kDa Band Hep A IgM Ab Confirm Hepatitis A Ab Total Hep Bs Antigen Hep Bs Antibody Hep B Core Total Ab Hep B Core IgM Ab Hepatitis Be Antibody Hepatitis Be Antigen Active Medications Generic Name Dose Route Start Last Admin Trade Name Freq PRN Reason Stop Dose Admin Ceftriaxone Sodium 1 gm/ 50 mls @ 100 mls/hr 12/12/19 10:00 12/15/19 10:13 Dextrose IVPB 100 mls/hr DAILY [facility] Administration Doxycycline Hyclate 100 mg/ 100 mls @ 100 mls/hr 12/12/19 10:00 12/15/19 10:13 Dextrose IVPB 100 mls/hr BID TIMO Administration Pantoprazole Sodium 40 mg 12/12/19 10:00 12/15/19 10:13 Protonix - PO 40 mg DAILY TIMO Administration Prednisone 40 mg 12/14/19 14:30 12/15/19 10:12 Deltasone - PO 40 mg DAILY [facility] Administration Tramadol HCl 50 mg 12/12/19 10:30 12/15/19 00:57 Ultram - PO 50 mg Q6H PRN Administration PAIN LEVEL 6-10 ASSESSMENT/PLAN: Patient is a 54 year old male with no reported medical history admitted for edema of bilateral hands and feet with generalized myalgias. Edema of bilateral hands and feet -?Rheumatologic etiology vs. allergy -Duple bilateral lower extremities negative for DVT -Continue Prednisone 40mg PO daily for two more days. -Follow ESR/ CRP -Nephrology recommendations (Dr. Bearden) appreciated -Rheumatology recommendations (Dr. Ghotra) appreciated Commuity acquired pneumonia vs COVID 19 -COVID PCR swab negative, however noted elevated D-dimer, CRP, Ferritin -CTA does not reveal PE; empiric anticoagulation discontinued. CT chest did reveal consolidation right lower lung lobe. -Ceftriaxone, Doxycycline (added due to concern for Lyme) -day #4 antibiotics. Patient remains afebrile. WBC count decreasing to 11.5 today. Proteinuria -Protein: Cr ratio not within nephrotic range -Follow repeat urinalysis, urine protein -Nephrology recommendations (Dr. Bearden) apreciated Hypekalemia -Resolved. There was hemolysis in original sample with value of 6.8. Repeat values have remained within normal limits -Follow BMP Polysubstance use disorder -Urine toxicology positive for amphetamines, opiates -Patient counselled regarding abstinence. Denies amphetamine use. -Will refer to rehab program upon discharge Transaminitis -AST 29 ALT 78 ALk55 bilirubin 0.8 -Right upper quadrant ultrasound reveals -Monitor hepatic panel FEN -No IV fluids indicated -Follow BMP -Regular diet Prophylaxis -Lovenox 40mg subq daily Disposition -Continue care in medical surgical floor Visit type - Emergency Visit Emergency Visit: Yes ED Registration Date: 12/12/19 Care time: The patient presented to the Emergency Department on the above date and was hospitalized for further evaluation of their emergent condition. - New Patient This patient is new to me today: Yes Date on this admission: 12/16/19 - Critical Care Critical Care patient: No - Discharge Referral Referred to [facility] No ATTENDING PHYSICIAN STATEMENT I saw and evaluated the patient. I reviewed the resident's note and discussed the case with the resident. I agree with the resident's findings and plan as documented. SUBJECTIVE: OBJECTIVE: ASSESSMENT AND PLAN:
[2019-12-15 12:50] LABS: ERYTHROCYTE SEDIMENTATION RATE 94 mm/hr (0-20)
--- NOTE | 2019-12-15 14:44 | PN ---
Progress Note (short form) - Note Progress Note: Resting in NAD. No CP or SOB. No acute events overnight. Intake & Output 12/12/19 12/13/19 12/14/19 12/15/19 23:59 23:59 23:59 23:59 Intake Total 200 2875 750 50 Output Total 900 1670 3200 700 Balance -700 1205 -2450 -650 Weight 185 lb Last Vital Signs Temp Pulse Resp BP Pulse Ox 98.4 F 94 H 18 152/94 98 12/15/19 10:24 12/15/19 10:24 12/15/19 10:24 12/15/19 10:24 12/15/19 10:24 Active Medications Ceftriaxone Sodium 1 gm/ (Dextrose) 50 mls @ 100 mls/hr IVPB DAILY [facility] Last Admin: 12/15/19 10:13 Dose: 100 mls/hr Documented by: Doxycycline Hyclate 100 mg/ (Dextrose) 100 mls @ 100 mls/hr IVPB BID [facility] Last Admin: 12/15/19 10:13 Dose: 100 mls/hr Documented by: Pantoprazole Sodium (Protonix -) 40 mg PO DAILY [facility] Last Admin: 12/15/19 10:13 Dose: 40 mg Documented by: Prednisone (Deltasone -) 40 mg PO DAILY [facility] Last Admin: 12/15/19 10:12 Dose: 40 mg Documented by: Tramadol HCl (Ultram -) 50 mg PO Q6H PRN PRN Reason: PAIN LEVEL 6-10 Last Admin: 12/15/19 00:57 Dose: 50 mg Documented by: Constitutional: Yes: Well Nourished, NAD Eyes: Yes: WNL HENT: Yes: WNL Neck: Yes: WNL Cardiovascular: Yes: Regular Rate and Rhythm, S1, S2 Respiratory: Yes: CTA Bilaterally Gastrointestinal: Yes: Normal Bowel Sounds, Soft Extremities: Yes: WNL Labs: Laboratory Results - last 24 hr 12/12/19 12/12/19 12/14/19 06:10 13:28 06:45 WBC RBC Hgb Hct MCV MCH MCHC RDW Plt Count MPV ESR Sodium 137 Potassium 3.8 Chloride 102 Carbon Dioxide 27 Anion Gap 9 BUN 23.4 H Creatinine 0.6 Est GFR (CKD-EPI)AfAm 133.98 Est GFR (CKD-EPI)NonAf 115.60 Random Glucose 79 Calcium 7.8 L Phosphorus 3.3 Magnesium 2.1 Total Bilirubin 0.6 Direct Bilirubin 0.3 H AST 38 H ALT 78 H Alkaline Phosphatase 50 C-Reactive Protein Total Protein 5.1 L Albumin 1.9 L Lyme IgM 23 kDa Band No Result Required. Lyme IgM 39 kDa Band No Result Required. Lyme IgM 41 kDa Band No Result Required. Hep A IgM Ab Confirm Negative Hepatitis A Ab Total Negative Hep Bs Antigen Negative Hep Bs Antibody Non reactive Hep B Core Total Ab Negative Hep B Core IgM Ab Negative Hepatitis Be Antibody Negative Hepatitis Be Antigen Negative HCV Quantitation Hcv not detected HCV RNA log copies/mL TNP 12/15/19 12/15/19 05:52 05:57 WBC 11.5 H RBC 4.36 Hgb 13.1 Hct 39.6 MCV 90.9 MCH 30.1 MCHC 33.1 RDW 14.3 Plt Count 321 MPV 8.0 ESR 94 H Sodium 138 Potassium 4.4 Chloride 101 Carbon Dioxide 29 Anion Gap 8 BUN 16.2 Creatinine 0.5 L Est GFR (CKD-EPI)AfAm 144.40 Est GFR (CKD-EPI)NonAf 124.59 Random Glucose 98 Calcium 7.8 L Phosphorus Magnesium Total Bilirubin 0.8 Direct Bilirubin AST 29 ALT 78 H Alkaline Phosphatase 55 C-Reactive Protein 11.6 H Total Protein 5.4 L Albumin 2.0 L Lyme IgM 23 kDa Band Lyme IgM 39 kDa Band Lyme IgM 41 kDa Band Hep A IgM Ab Confirm Hepatitis A Ab Total Hep Bs Antigen Hep Bs Antibody Hep B Core Total Ab Hep B Core IgM Ab Hepatitis Be Antibody Hepatitis Be Antigen HCV Quantitation HCV RNA log copies/mL Problem List - Problems (1) Bilateral hand swelling Code(s): M79.89 - OTHER SPECIFIED SOFT TISSUE DISORDERS (2) Hyponatremia Code(s): E87.1 - HYPO-OSMOLALITY AND HYPONATREMIA (3) Inflammatory polyarthropathy of hand Code(s): M06.4 - INFLAMMATORY POLYARTHROPATHY (4) RLL pneumonia Code(s): J18.9 - PNEUMONIA, UNSPECIFIED ORGANISM Qualifiers: Pneumonia type: due to unspecified organism Qualified Code(s): J18.9 - Pneumonia, unspecified organism Assessment/Plan Pneumonia Hyponatremia improved Proteinuria r/o Rheumatologic Disease - ABX : Can consider change to PO - Prednisone - rheumatology workup ongoing - O2 to keep SpO2 >90% - DVT prophylaxis Dr Hall
--- NOTE | 2019-12-15 15:17 | PN ---
Teaching Attending Note Name of Resident: Harjeet Pittman ATTENDING PHYSICIAN STATEMENT I saw and evaluated the patient. I reviewed the resident's note and discussed the case with the resident. I agree with the resident's findings and plan as documented. SUBJECTIVE: Continued improvement in generalized extremity discomfort, swelling and weakness UEs>LEs. No fever/chills. No cough/sputum. No headache/visual disturbance. OBJECTIVE: Fever resolved. Hemodynamically stable. Last Vital Signs Temp Pulse Resp BP Pulse Ox 98.6 F 94 H 18 152/90 96 12/15/19 14:56 12/15/19 14:56 12/15/19 14:56 12/15/19 14:56 12/15/19 14:56 Heart - S1, S2, RRR Lungs - clear to auscultation Abdomen - Soft, non-tender. Bowel Sounds normal. Extremities - bilateral hand and feet swelling improving. Bilateral foot patchy ?erythema/hyperemia - resolved. No sign of cellulitis or ischemia. No calf tenderness. Neuro - AAO x 3. Power normal LEs. Power reduced UEs due to discomfort/myalgia. No focal neuro deficits. Laboratory Results - last 24 hr 12/12/19 12/12/19 12/14/19 06:10 13:28 06:45 WBC RBC Hgb Hct MCV MCH MCHC RDW Plt Count MPV ESR Sodium 137 Potassium 3.8 Chloride 102 Carbon Dioxide 27 Anion Gap 9 BUN 23.4 H Creatinine 0.6 Est GFR (CKD-EPI)AfAm 133.98 Est GFR (CKD-EPI)NonAf 115.60 Random Glucose 79 Calcium 7.8 L Phosphorus 3.3 Magnesium 2.1 Total Bilirubin 0.6 Direct Bilirubin 0.3 H AST 38 H ALT 78 H Alkaline Phosphatase 50 C-Reactive Protein Total Protein 5.1 L Albumin 1.9 L Lyme IgM 23 kDa Band No Result Required. Lyme IgM 39 kDa Band No Result Required. Lyme IgM 41 kDa Band No Result Required. Hep A IgM Ab Confirm Negative Hepatitis A Ab Total Negative Hep Bs Antigen Negative Hep Bs Antibody Non reactive Hep B Core Total Ab Negative Hep B Core IgM Ab Negative Hepatitis Be Antibody Negative Hepatitis Be Antigen Negative HCV Quantitation Hcv not detected HCV RNA log copies/mL TNP 12/15/19 12/15/19 05:52 05:57 WBC 11.5 H RBC 4.36 Hgb 13.1 Hct 39.6 MCV 90.9 MCH 30.1 MCHC 33.1 RDW 14.3 Plt Count 321 MPV 8.0 ESR 94 H Sodium 138 Potassium 4.4 Chloride 101 Carbon Dioxide 29 Anion Gap 8 BUN 16.2 Creatinine 0.5 L Est GFR (CKD-EPI)AfAm 144.40 Est GFR (CKD-EPI)NonAf 124.59 Random Glucose 98 Calcium 7.8 L Phosphorus Magnesium Total Bilirubin 0.8 Direct Bilirubin AST 29 ALT 78 H Alkaline Phosphatase 55 C-Reactive Protein 11.6 H Total Protein 5.4 L Albumin 2.0 L Lyme IgM 23 kDa Band Lyme IgM 39 kDa Band Lyme IgM 41 kDa Band Hep A IgM Ab Confirm Hepatitis A Ab Total Hep Bs Antigen Hep Bs Antibody Hep B Core Total Ab Hep B Core IgM Ab Hepatitis Be Antibody Hepatitis Be Antigen HCV Quantitation HCV RNA log copies/mL Current Medications Generic Name Dose Route Start Last Admin Trade Name Freq PRN Reason Stop Dose Admin Ceftriaxone Sodium 1 gm/ 50 mls @ 100 mls/hr 12/12/19 10:00 12/15/19 10:13 Dextrose IVPB 100 mls/hr DAILY [facility] Administration Doxycycline Hyclate 100 mg/ 100 mls @ 100 mls/hr 12/12/19 10:00 12/15/19 10:13 Dextrose IVPB 100 mls/hr BID TIMO Administration Pantoprazole Sodium 40 mg 12/12/19 10:00 12/15/19 10:13 Protonix - PO 40 mg DAILY [facility]O Administration Prednisone 40 mg 12/14/19 14:30 12/15/19 10:12 Deltasone - PO 40 mg DAILY [facility] Administration Tramadol HCl 50 mg 12/12/19 10:30 12/15/19 00:57 Ultram - PO 50 mg Q6H PRN Administration PAIN LEVEL 6-10 Home Medications Medication Instructions Recorded predniSONE [Deltasone -] 40 mg PO DAILY 2 Days #4 tablet 12/15/19 ASSESSMENT AND PLAN: 54 year old male with no significant PMH, presents with bilateral hand/foot swelling and generalized myalgia. 1. Bilateral Hand and Feet edema/Generalized Myalgia, etiology unclear ?Rheumatological phenomenon ?Connective Tissue Disorder Autoimmune/Vasculitis work-up pending - CAROLYNE negative, CPK wnl. LE Venous/Arterial Duplex - no thrombosis Initially seemed to improve with empiric steroid therapy. PT evaluated 12/13 for safe ambulation but found patient unsteady on his feet. The patient now feels stronger and more ready to walk independently after resuming steroids yesterday. PT will re-evaluate. Nephrology/Rheumatology following. 2. Proteinuria/Hypoalbuminemia/Edema Urine protein to creatinine ratio less than threshold for Nephrotic Syndrome Nephrology following Vasculitis work-up in progress. Will give short Steroid course - received Dexa in ED, followed by Methylprednisone. Resumed on 3 additional days of Prednisone 40mg 12/13. 3. Elevated inflammatory markers including CRP, Ferritin, DDIMER (2523), SpO2 93%RA COVID PCR negative. Repeat sent. No groundglass opacities on CT Chest. CTA negative for PE. Empiric AC stopped. Will continue Steroid for short course. 4. CAP - R basal consolidation Continue Ceftriaxone/Doxy (Day 4) for 1 additional day. Last fever 12/11 at 3pm - will monitor. 5. Hyperkalemia - resolved. 6. Utox - opiate and amphetamine positive. ?opiate pos sec to morphine given in ED. Patient denies amphetamine use. 7. Mild elevation in LFTs, stable - Abdominal US shows fatty liver - will monitor. DVT Px - Lovenox SQ
--- NOTE | 2019-12-15 15:32 | PN ---
Progress Note, Physician History of Present Illness: Pt seen and examined at bedside. He is awake and alert. He feels that the edema is improved. - Current Medication List Current Medications: Active Medications Enoxaparin Sodium (Lovenox -) 40 mg SQ DAILY [facility] Ceftriaxone Sodium 1 gm/ (Dextrose) 50 mls @ 100 mls/hr IVPB DAILY [facility] Last Admin: 12/15/19 10:13 Dose: 100 mls/hr Documented by: Doxycycline Hyclate 100 mg/ (Dextrose) 100 mls @ 100 mls/hr IVPB BID [facility] Last Admin: 12/15/19 10:13 Dose: 100 mls/hr Documented by: Pantoprazole Sodium (Protonix -) 40 mg PO DAILY [facility] Last Admin: 12/15/19 10:13 Dose: 40 mg Documented by: Prednisone (Deltasone -) 40 mg PO DAILY [facility] Last Admin: 12/15/19 10:12 Dose: 40 mg Documented by: Tramadol HCl (Ultram -) 50 mg PO Q6H PRN PRN Reason: PAIN LEVEL 6-10 Last Admin: 12/15/19 00:57 Dose: 50 mg Documented by: - Objective Vital Signs: Vital Signs Temperature 98.6 F 12/15/19 14:56 Pulse Rate 94 H 12/15/19 14:56 Respiratory Rate 18 12/15/19 14:56 Blood Pressure 152/90 12/15/19 14:56 O2 Sat by Pulse Oximetry (%) 96 12/15/19 14:56 Constitutional: Yes: Calm Eyes: Yes: Conjunctiva Clear HENT: Yes: Atraumatic Cardiovascular: Yes: S1, S2 Respiratory: Yes: CTA Bilaterally Gastrointestinal: Yes: Soft Genitourinary: Yes: WNL Musculoskeletal: Yes: WNL Extremities: Yes: WNL Edema: No Neurological: Yes: Oriented Psychiatric: Yes: Oriented Labs: CBC, BMP 12/15/19 05:57 12/15/19 05:52 Problem List - Problems (1) Proteinuria Code(s): R80.9 - PROTEINURIA, UNSPECIFIED (2) Hyperkalemia Code(s): E87.5 - HYPERKALEMIA (3) Hyponatremia Code(s): E87.1 - HYPO-OSMOLALITY AND HYPONATREMIA (4) Bilateral hand swelling Code(s): M79.89 - OTHER SPECIFIED SOFT TISSUE DISORDERS (5) RLL pneumonia Code(s): J18.9 - PNEUMONIA, UNSPECIFIED ORGANISM Qualifiers: Pneumonia type: due to unspecified organism Qualified Code(s): J18.9 - Pneumonia, unspecified organism Assessment/Plan Current Medications Generic Name Dose Route Start Last Admin Trade Name Freq PRN Reason Stop Dose Admin Enoxaparin Sodium 40 mg 12/15/19 15:30 Lovenox - SQ DAILY [facility] Ceftriaxone Sodium 1 gm/ 50 mls @ 100 mls/hr 12/12/19 10:00 12/15/19 10:13 Dextrose IVPB 100 mls/hr DAILY [facility] Administration Doxycycline Hyclate 100 mg/ 100 mls @ 100 mls/hr 12/12/19 10:00 12/15/19 10:13 Dextrose IVPB 100 mls/hr BID [facility] Administration Pantoprazole Sodium 40 mg 12/12/19 10:00 12/15/19 10:13 Protonix - PO 40 mg DAILY [facility] Administration Prednisone 40 mg 12/14/19 14:30 12/15/19 10:12 Deltasone - PO 40 mg DAILY [facility] Administration Tramadol HCl 50 mg 12/12/19 10:30 12/15/19 00:57 Ultram - PO 50 mg Q6H PRN Administration PAIN LEVEL 6-10 Laboratory Tests 12/12/19 12/12/19 12/12/19 00:22 06:10 06:10 C-Reactive Protein 27.3 H Opiates Screen Positive A* Ur Amphetamines Screen Positive A* Lead CAROLYNE Screen Negative c-ANCA Proteinase 3 (PR3) p-ANCA Atypical p-ANCA Myeloperoxidase Ab Double Strand DNA Ab Glomerular Base Memb Ab 12/12/19 12/14/19 12/15/19 13:28 12:10 05:52 C-Reactive Protein 11.6 H Opiates Screen Ur Amphetamines Screen Lead Pending CAROLYNE Screen c-ANCA Pending Proteinase 3 (PR3) Pending p-ANCA Pending Atypical p-ANCA Pending Myeloperoxidase Ab Pending Double Strand DNA Ab 2 Glomerular Base Memb Ab Pending Impression 1. bilateral hand and feet swelling 2. proteinuria 3. hyponatremia 4. hyperkalemia 5. positive urine tox 6. weakness 7. leukocytosis 8. elevated esr 9. PNA Plan - cont steroids with taper - repeat ua - serologies pending - crp is lower - discussed with rheum, will follow workup
[2019-12-15] MEDS: ENOXAPARIN NA (PORCINE) 40 MG/0.4 ML DISP.SYRIN SQ SCH (18:08)
[2019-12-15 19:28] LABS: EPI CELLS 12 /uL (0-25.1); HYALINE CASTS 0 /uL (0-3.1); PH,URINE 7.5 (5.0-8.0); URINE APPEARANCE CLEAR; URINE BACTERIA 15 /uL (0-1359); URINE BILIRUBIN NEGATIVE (NEGATIVE); URINE COLOR YELLOW; URINE GLUCOSE (UA) TRACE (NEGATIVE); URINE KETONE NEGATIVE (NEGATIVE); URINE LEUK ESTERASE NEGATIVE (NEGATIVE); URINE NITRITE NEGATIVE (NEGATIVE); URINE PROTEIN NEGATIVE (NEGATIVE); URINE RBC 104 /uL (0-23.9); URINE WBC 32 /uL (0-25.8)
[2019-12-16] MEDS ORDERED: MELATONIN 5 MG TABLETS PO ONE (00:14)
[2019-12-16 02:42] LABS: URINE APPEARANCE CLEAR; URINE BILIRUBIN NEGATIVE (NEGATIVE); URINE COLOR YELLOW; URINE GLUCOSE (UA) NEGATIVE (NEGATIVE); URINE KETONE NEGATIVE (NEGATIVE); URINE LEUK ESTERASE NEGATIVE (NEGATIVE); URINE NITRITE NEGATIVE (NEGATIVE); URINE PROTEIN NEGATIVE (NEGATIVE)
[2019-12-16] MEDS: traMADol HCL 50 MG TABLET PO PRN (03:43)
[2019-12-16 07:41] LABS: HEMATOCRIT 40.1 % (35.4-49); HEMOGLOBIN 13.2 GM/dL (11.7-16.9); MCH 30.3 pg (25.7-33.7); MEAN PLT VOLUME 8.3 fl (7.5-11.1); PLATELET COUNT 351 K/MM3 (134-434); RBC 4.36 M/mm3 (4.00-5.60); RDW 14.5 % (11.9-15.9); WHITE BLOOD COUNT 12.5 K/mm3 (4.0-10.0)
[2019-12-16 08:05] LABS: BILIRUBIN,TOTAL 0.7 mg/dL (0.2-1); BLOOD UREA NITROGEN 16.3 mg/dL (7-18); CALCIUM 7.7 mg/dL (8.5-10.1); CREATININE 0.6 mg/dL (0.55-1.3); MAGNESIUM 2.2 mg/dL (1.8-2.4); PHOSPHOROUS 3.2 mg/dL (2.5-4.9); POTASSIUM 4.2 mmol/L (3.5-5.1); TOT PROT 5.6 g/dl (6.4-8.2)
[2019-12-16] MEDS ORDERED: DOXYCYCLINE HYCLATE 100 MG VIAL ONE (09:14)
[2019-12-16] MEDS ORDERED: DEXTROSE 5%-WATER 100 ML IVPB ONE (09:14)
[2019-12-16] MEDS ORDERED: DEXTROSE 5%-WATER - 50 ML IVPB ONE (09:15)
[2019-12-16] MEDS ORDERED: cefTRIAXone SODIUM 1 GM VIAL ONE (09:15)
[2019-12-16] MEDS: predniSONE 20 MG TABLET (UD) PO SCH (10:15)
[2019-12-16] MEDS: ENOXAPARIN NA (PORCINE) 40 MG/0.4 ML DISP.SYRIN SQ SCH (10:15)
[2019-12-16] MEDS: DOXYCYCLINE INJECTION 100 MG in DEXTROSE 5%-WATER 100 ML IVPB SCH (10:16)
[2019-12-16] MEDS: PANTOPRAZOLE 40 MG TABLET PO SCH (10:16)
[2019-12-16] MEDS: CEFTRIAXONE 1 GM in DEXTROSE 5%-WATER - 50 ML IVPB SCH (11:06)
--- NOTE | 2019-12-16 12:21 | DS ---
Physical Exam: SUBJECTIVE: Continued improvement in generalized extremity discomfort, swelling and weakness. No fever/chills. No cough/sputum. No headache/visual disturbance. OBJECTIVE: Fever resolved. Hemodynamically stable. Last Vital Signs Temp Pulse Resp BP Pulse Ox 97.8 F 86 18 146/86 95 12/16/19 06:00 12/16/19 06:00 12/16/19 06:00 12/16/19 06:00 12/16/19 06:00 Heart - S1, S2, RRR Lungs - clear to auscultation Abdomen - Soft, non-tender. Bowel Sounds normal. Extremities - bilateral hand and feet swelling improving. Bilateral foot patchy ?erythema/hyperemia - resolved. No sign of cellulitis or ischemia. No calf tenderness. Neuro - AAO x 3. Power normal LEs. Power reduced UEs due to discomfort/myalgia. No focal neuro deficits. Laboratory Results - last 24 hr 12/12/19 12/14/19 12/15/19 13:28 22:00 05:52 WBC RBC Hgb Hct MCV MCH MCHC RDW Plt Count MPV ESR Sodium Potassium Chloride Carbon Dioxide Anion Gap BUN Creatinine Est GFR (CKD-EPI)AfAm Est GFR (CKD-EPI)NonAf Random Glucose Calcium Phosphorus Magnesium Total Bilirubin AST ALT Alkaline Phosphatase C-Reactive Protein 11.6 H Total Protein Albumin Urine Color Urine Appearance Urine pH Ur Specific [place] Urine Protein Urine Glucose (UA) Urine Ketones Urine Blood Urine Nitrite Urine Bilirubin Urine Urobilinogen Ur Leukocyte Esterase Urine WBC (Auto) Urine RBC (Auto) Urine Casts (Auto) U Epithel Cells (Auto) Urine Bacteria (Auto) Ur Random Creatinine U Random Total Protein Protein/Creatinin Ratio COVID-19 (SUDHA) Not detected HCV Quantitation Hcv not detected HCV RNA log copies/mL TNP SARS-CoV-2 Ab Interp 12/15/19 12/15/19 12/15/19 05:57 18:00 18:00 WBC RBC Hgb Hct MCV MCH MCHC RDW Plt Count MPV ESR 94 H Sodium Potassium Chloride Carbon Dioxide Anion Gap BUN Creatinine Est GFR (CKD-EPI)AfAm Est GFR (CKD-EPI)NonAf Random Glucose Calcium Phosphorus Magnesium Total Bilirubin AST ALT Alkaline Phosphatase C-Reactive Protein Total Protein Albumin Urine Color Urine Appearance Urine pH Ur Specific [place] Urine Protein Urine Glucose (UA) Urine Ketones Urine Blood Urine Nitrite Urine Bilirubin Urine Urobilinogen Ur Leukocyte Esterase Urine WBC (Auto) Urine RBC (Auto) Urine Casts (Auto) U Epithel Cells (Auto) Urine Bacteria (Auto) Ur Random Creatinine 19.0 L U Random Total Protein 10.6 11.4 Protein/Creatinin Ratio 0.6 COVID-19 (SUDHA) HCV Quantitation HCV RNA log copies/mL SARS-CoV-2 Ab Inter 12/15/19 12/16/19 12/16/19 18:00 01:05 01:05 WBC RBC Hgb Hct MCV MCH MCHC RDW Plt Count MPV ESR Sodium Potassium Chloride Carbon Dioxide Anion Gap BUN Creatinine Est GFR (CKD-EPI)AfAm Est GFR (CKD-EPI)NonAf Random Glucose Calcium Phosphorus Magnesium Total Bilirubin AST ALT Alkaline Phosphatase C-Reactive Protein Total Protein Albumin Urine Color Yellow Yellow Urine Appearance Clear Clear Urine pH 7.5 D 7.0 Ur Specific [place] 1.009 L 1.013 Urine Protein Negative Negative Urine Glucose (UA) Trace Negative Urine Ketones Negative Negative Urine Blood 1+ H Negative Urine Nitrite Negative Negative Urine Bilirubin Negative Negative Urine Urobilinogen 1.0 1.0 Ur Leukocyte Esterase Negative Negative Urine WBC (Auto) 32 Urine RBC (Auto) 104 Urine Casts (Auto) 0 U Epithel Cells (Auto) 12 Urine Bacteria (Auto) 15 Ur Random Creatinine 30.0 U Random Total Protein < 5.0 Protein/Creatinin Ratio 0.2 COVID-19 (SUDHA) HCV Quantitation HCV RNA log copies/mL SARS-CoV-2 Ab Inter 12/16/19 12/16/19 12/16/19 06:48 06:48 06:48 WBC 12.5 H RBC 4.36 Hgb 13.2 Hct 40.1 MCV 92.0 MCH 30.3 MCHC 33.0 RDW 14.5 Plt Count 351 MPV 8.3 ESR Sodium 137 Potassium 4.2 Chloride 101 Carbon Dioxide 29 Anion Gap 7 L BUN 16.3 Creatinine 0.6 Est GFR (CKD-EPI)AfAm 133.98 Est GFR (CKD-EPI)NonAf 115.60 Random Glucose 82 Calcium 7.7 L Phosphorus 3.2 Magnesium 2.2 Total Bilirubin 0.7 AST 18 ALT 61 Alkaline Phosphatase 50 C-Reactive Protein Total Protein 5.6 L Albumin 2.0 L Urine Color Urine Appearance Urine pH Ur Specific [place] Urine Protein Urine Glucose (UA) Urine Ketones Urine Blood Urine Nitrite Urine Bilirubin Urine Urobilinogen Ur Leukocyte Esterase Urine WBC (Auto) Urine RBC (Auto) Urine Casts (Auto) U Epithel Cells (Auto) Urine Bacteria (Auto) Ur Random Creatinine U Random Total Protein Protein/Creatinin Ratio COVID-19 (SUDHA) HCV Quantitation HCV RNA log copies/mL SARS-CoV-2 Ab Interp Reactive Discharge Medications Medication Instructions Recorded predniSONE [Deltasone -] See Taper PO ASDIR 6 Days #15 tab 12/16/19 Date of Admission:12/12/19 Date of Discharge: 12/16/19 Minutes to complete discharge: 40 Discharge Summary Problems reviewed: Yes Reason For Visit: ACUTE RESPIRATORY FAILURE, SWELLING OF BOTH HANDS, Current Active Problems Acute respiratory failure (Acute) Bilateral hand swelling (Acute) Hyperkalemia (Acute) Hyponatremia (Acute) Inflammatory polyarthropathy (Acute) Inflammatory polyarthropathy of hand (Acute) Proteinuria (Acute) Pulmonary HTN (Acute) RLL pneumonia (Acute) Hospital Course: 54 year old male with no significant PMH, presents with bilateral hand/foot swelling and generalized myalgia. 1. Bilateral Hand and Feet edema/Generalized Myalgia, etiology unclear ?Rheumatological phenomenon ?Connective Tissue Disorder Autoimmune/Vasculitis work-up pending - CAROLYNE negative, CPK wnl. LE Venous/Arterial Duplex - no thrombosis Symptoms and strength improved with steroids - will discharge on steroid taper. Nephrology and Rheumatology follow-up as out-patient. 2. Proteinuria/Hypoalbuminemia/Edema Urine protein to creatinine ratio less than threshold for Nephrotic Syndrome Nephrology following Vasculitis work-up in progress. On tapering steroid course. Nephrology follow up as out-patient. 3. Elevated inflammatory markers including CRP, Ferritin, DDIMER (2523), SpO2 93%RA COVID PCR negative x 2, Ab positive. No groundglass opacities on CT Chest. CTA negative for PE. Empiric AC stopped. Will continue Steroid for short course. 4. CAP - R basal consolidation Completed 5 days Ceftriaxone/Doxy. Last fever 4 days ago. Hemodynamically stable and fit for discharge. 5. Hyperkalemia - resolved. 6. Utox - opiate and amphetamine positive. ?opiate pos sec to morphine given in ED. Patient denies amphetamine use. 7. Mild elevation in LFTs, resolved - Abdominal US shows fatty liver. Medically stable for discharge once cleared by Physical Therapy. Condition: Improved - Instructions Diet, Activity, Other Instructions: You were admitted to the hospital for evaluation of swelling your your hands and feet. 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 You were found to have excess protein in your urine, and were treated with steroids. You have experienced significant improvement in your symptoms, regaining strength enough to walk and to perform activities required for daily living. You had blood tests performed to assess for auto-immune etiologies of this swelling/ weakness which you will follow up as outpatient with [employer] for final results and recommendations for further management.. Continue taking your home medications as directed. You will take Prednisone 40mg taper as prescribed. Follow up with your primary care physician within 2 days after discharge. A referral has been provided. Follow up with Dr. Ghotra ([employer]) within one week to discus bloodwork that was performed during hospitalization and to assess progress in your symptoms. A referral has been provided. Follow up with Dr. Bearden (Nephrology) within one week. A referral has been provided. Return to the nearest emergency department if you experience worsening symptoms, subjective fevers, chills, shortness of breath, chest pain, palpitations, abdominal pain, nausea, vomiting, any trauma or loss of consciousness. Referrals: Erich Faulkner MD [Staff Physician] - 12/18/19 Grayson Ghotra MD [Staff Physician] - 1 Week (Follow up for autoimmune workup. Initially presented for swolled bilateral hands, feet.) Johnathan Bearden MD [Staff Physician] - 1 Week (Follow up for proteinuria, bilateral upper and lower extremity edema. ) Disposition: HOME - Home Medications Comprehensive Discharge Medication List: Ambulatory Orders predniSONE [Deltasone -] See Taper PO ASDIR 6 Days #15 tab 12/16/19 This patient is new to me today: No Emergency Visit: Yes ED Registration Date: 12/12/19 Care time: The patient presented to the Emergency Department on the above date and was hospitalized for further evaluation of their emergent condition. Critical Care patient: No - Discharge Referral Referred to [facility] No
--- NOTE | 2019-12-16 14:10 | PN ---
Progress Note (short form) - Note Progress Note: Resting in NAD. No CP or SOB. No acute events overnight. Intake & Output 12/13/19 12/14/19 12/15/19 12/16/19 23:59 23:59 23:59 23:59 Intake Total 2875 750 200 900 Output Total 1670 3200 1300 900 Balance 1205 -2450 -1100 0 Last Vital Signs Temp Pulse Resp BP Pulse Ox 97.8 F 86 18 148/94 95 12/16/19 06:00 12/16/19 06:00 12/16/19 06:00 12/16/19 06:00 12/16/19 06:00 Active Medications Enoxaparin Sodium (Lovenox -) 40 mg SQ DAILY [facility] Last Admin: 12/15/19 18:08 Dose: 40 mg Documented by: Ceftriaxone Sodium 1 gm/ (Dextrose) 50 mls @ 100 mls/hr IVPB DAILY [facility] Last Admin: 12/15/19 10:13 Dose: 100 mls/hr Documented by: Doxycycline Hyclate 100 mg/ (Dextrose) 100 mls @ 100 mls/hr IVPB BID [facility] Last Admin: 12/15/19 21:31 Dose: 100 mls/hr Documented by: Pantoprazole Sodium (Protonix -) 40 mg PO DAILY [facility] Last Admin: 12/15/19 10:13 Dose: 40 mg Documented by: Prednisone (Deltasone -) 40 mg PO DAILY [facility] Last Admin: 12/15/19 10:12 Dose: 40 mg Documented by: Tramadol HCl (Ultram -) 50 mg PO Q6H PRN PRN Reason: PAIN LEVEL 6-10 Last Admin: 12/16/19 03:43 Dose: 50 mg Documented by: Constitutional: Yes: Well Nourished, NAD Eyes: Yes: WNL HENT: Yes: WNL Neck: Yes: WNL Cardiovascular: Yes: Regular Rate and Rhythm, S1, S2 Respiratory: Yes: CTA Bilaterally Gastrointestinal: Yes: Normal Bowel Sounds, Soft Extremities: Yes: WNL Labs: Laboratory Results - last 24 hr 12/14/19 12/15/19 12/15/19 22:00 18:00 18:00 WBC RBC Hgb Hct MCV MCH MCHC RDW Plt Count MPV Sodium Potassium Chloride Carbon Dioxide Anion Gap BUN Creatinine Est GFR (CKD-EPI)AfAm Est GFR (CKD-EPI)NonAf Random Glucose Calcium Phosphorus Magnesium Total Bilirubin AST ALT Alkaline Phosphatase Total Protein Albumin Urine Color Urine Appearance Urine pH Ur Specific [place] Urine Protein Urine Glucose (UA) Urine Ketones Urine Blood Urine Nitrite Urine Bilirubin Urine Urobilinogen Ur Leukocyte Esterase Urine WBC (Auto) Urine RBC (Auto) Urine Casts (Auto) U Epithel Cells (Auto) Urine Bacteria (Auto) Ur Random Creatinine 19.0 L U Random Total Protein 10.6 11.4 Protein/Creatinin Ratio 0.6 COVID-19 (SUDHA) Not detected SARS-CoV-2 Ab Inter 12/15/19 12/16/19 12/16/19 18:00 01:05 01:05 WBC RBC Hgb Hct MCV MCH MCHC RDW Plt Count MPV Sodium Potassium Chloride Carbon Dioxide Anion Gap BUN Creatinine Est GFR (CKD-EPI)AfAm Est GFR (CKD-EPI)NonAf Random Glucose Calcium Phosphorus Magnesium Total Bilirubin AST ALT Alkaline Phosphatase Total Protein Albumin Urine Color Yellow Yellow Urine Appearance Clear Clear Urine pH 7.5 D 7.0 Ur Specific [place] 1.009 L 1.013 Urine Protein Negative Negative Urine Glucose (UA) Trace Negative Urine Ketones Negative Negative Urine Blood 1+ H Negative Urine Nitrite Negative Negative Urine Bilirubin Negative Negative Urine Urobilinogen 1.0 1.0 Ur Leukocyte Esterase Negative Negative Urine WBC (Auto) 32 Urine RBC (Auto) 104 Urine Casts (Auto) 0 U Epithel Cells (Auto) 12 Urine Bacteria (Auto) 15 Ur Random Creatinine 30.0 U Random Total Protein < 5.0 Protein/Creatinin Ratio 0.2 COVID-19 (SUDHA) SARS-CoV-2 Ab Inter 12/16/19 12/16/19 12/16/19 06:48 06:48 06:48 WBC 12.5 H RBC 4.36 Hgb 13.2 Hct 40.1 MCV 92.0 MCH 30.3 MCHC 33.0 RDW 14.5 Plt Count 351 MPV 8.3 Sodium 137 Potassium 4.2 Chloride 101 Carbon Dioxide 29 Anion Gap 7 L BUN 16.3 Creatinine 0.6 Est GFR (CKD-EPI)AfAm 133.98 Est GFR (CKD-EPI)NonAf 115.60 Random Glucose 82 Calcium 7.7 L Phosphorus 3.2 Magnesium 2.2 Total Bilirubin 0.7 AST 18 ALT 61 Alkaline Phosphatase 50 Total Protein 5.6 L Albumin 2.0 L Urine Color Urine Appearance Urine pH Ur Specific [place] Urine Protein Urine Glucose (UA) Urine Ketones Urine Blood Urine Nitrite Urine Bilirubin Urine Urobilinogen Ur Leukocyte Esterase Urine WBC (Auto) Urine RBC (Auto) Urine Casts (Auto) U Epithel Cells (Auto) Urine Bacteria (Auto) Ur Random Creatinine U Random Total Protein Protein/Creatinin Ratio COVID-19 (SUDHA) SARS-CoV-2 Ab Interp Reactive Problem List - Problems (1) Bilateral hand swelling Code(s): M79.89 - OTHER SPECIFIED SOFT TISSUE DISORDERS (2) Hyponatremia Code(s): E87.1 - HYPO-OSMOLALITY AND HYPONATREMIA (3) Inflammatory polyarthropathy of hand Code(s): M06.4 - INFLAMMATORY POLYARTHROPATHY (4) RLL pneumonia Code(s): J18.9 - PNEUMONIA, UNSPECIFIED ORGANISM Qualifiers: Pneumonia type: due to unspecified organism Qualified Code(s): J18.9 - Pneumonia, unspecified organism Assessment/Plan Pneumonia Hyponatremia improved Proteinuria r/o Rheumatologic Disease - Change to PO ABX - Prednisone - DVT prophylaxis - DC planning - Repeat imaging in 6 to [address] outpatient [address] Hall
--- NOTE | 2019-12-16 14:38 | PN ---
Progress Note, Physician History of Present Illness: Pt seen and examined at bedside. He is awake and alert. He says that he does not know what was in the pills that his friend gave him. He is not sure if they were all tylenol. - Current Medication List Current Medications: Active Medications Enoxaparin Sodium (Lovenox -) 40 mg SQ DAILY [facility] Last Admin: 12/15/19 18:08 Dose: 40 mg Documented by: Ceftriaxone Sodium 1 gm/ (Dextrose) 50 mls @ 100 mls/hr IVPB DAILY [facility] Last Admin: 12/15/19 10:13 Dose: 100 mls/hr Documented by: Doxycycline Hyclate 100 mg/ (Dextrose) 100 mls @ 100 mls/hr IVPB BID [facility] Last Admin: 12/15/19 21:31 Dose: 100 mls/hr Documented by: Pantoprazole Sodium (Protonix -) 40 mg PO DAILY [facility] Last Admin: 12/15/19 10:13 Dose: 40 mg Documented by: Prednisone (Deltasone -) 40 mg PO DAILY [facility] Last Admin: 12/15/19 10:12 Dose: 40 mg Documented by: Tramadol HCl (Ultram -) 50 mg PO Q6H PRN PRN Reason: PAIN LEVEL 6-10 Last Admin: 12/16/19 03:43 Dose: 50 mg Documented by: - Objective Vital Signs: Vital Signs Temperature 97.8 F 12/16/19 06:00 Pulse Rate 86 12/16/19 06:00 Respiratory Rate 18 12/16/19 06:00 Blood Pressure 148/94 12/16/19 06:00 O2 Sat by Pulse Oximetry (%) 95 12/16/19 06:00 Constitutional: Yes: Calm Eyes: Yes: Conjunctiva Clear HENT: Yes: Atraumatic Neck: Yes: Supple Cardiovascular: Yes: S1, S2 Respiratory: Yes: CTA Bilaterally Gastrointestinal: Yes: Normal Bowel Sounds, Soft Genitourinary: Yes: WNL Musculoskeletal: Yes: WNL Edema: No Neurological: Yes: Oriented Psychiatric: Yes: Oriented Labs: CBC, BMP 12/16/19 06:48 12/16/19 06:48 Problem List - Problems (1) Proteinuria Code(s): R80.9 - PROTEINURIA, UNSPECIFIED (2) Hyperkalemia Code(s): E87.5 - HYPERKALEMIA (3) Hyponatremia Code(s): E87.1 - HYPO-OSMOLALITY AND HYPONATREMIA (4) Bilateral hand swelling Code(s): M79.89 - OTHER SPECIFIED SOFT TISSUE DISORDERS (5) RLL pneumonia Code(s): J18.9 - PNEUMONIA, UNSPECIFIED ORGANISM Qualifiers: Pneumonia type: due to unspecified organism Qualified Code(s): J18.9 - Pneumonia, unspecified organism Assessment/Plan Current Medications Generic Name Dose Route Start Last Admin Trade Name Freq PRN Reason Stop Dose Admin Enoxaparin Sodium 40 mg 12/15/19 15:30 12/15/19 18:08 Lovenox - SQ 40 mg DAILY [facility] Administration Ceftriaxone Sodium 1 gm/ 50 mls @ 100 mls/hr 12/12/19 10:00 12/15/19 10:13 Dextrose IVPB 100 mls/hr DAILY [facility] Administration Doxycycline Hyclate 100 mg/ 100 mls @ 100 mls/hr 12/12/19 10:00 12/15/19 21:31 Dextrose IVPB 100 mls/hr BID [facility] Administration Pantoprazole Sodium 40 mg 12/12/19 10:00 12/15/19 10:13 Protonix - PO 40 mg DAILY [facility] Administration Prednisone 40 mg 12/14/19 14:30 12/15/19 10:12 Deltasone - PO 40 mg DAILY [facility] Administration Tramadol HCl 50 mg 12/12/19 10:30 12/16/19 03:43 Ultram - PO 50 mg Q6H PRN Administration PAIN LEVEL 6-10 Laboratory Tests 12/16/19 01:05 Urine Protein Negative Urine Blood Negative Impression 1. bilateral hand and feet swelling 2. proteinuria - transient 3. hyponatremia 4. hyperkalemia 5. positive urine tox 6. weakness 7. leukocytosis 8. elevated esr 9. PNA Plan - repeat ua neg for blood or protein - pt have had an allergic reaction that caused the isolated edema - rheum follow up - serologies pending - steroid taper
[2019-12-16 15:32] VITALS: BP 146/84; PULSE 88; TEMP 98.2
[2019-12-17 12:07] LABS: ANTIGLOMERULAR BASEMENT MEN.AB 4 units (0-20)
[2019-12-17 17:07] LABS: ATYPICAL pANCA <1:20 titer (Neg:<1:20); C-ANCA <1:20 titer (Neg:<1:20)
== END 2019-12-16 18:25 | disposition home or self-care (01) | DRG 139 ==
LOC: JER 20:42 → JERBED 12-12 01:03 → J7W 12-12 13:10
PROVIDERS: ADMIT Internal Medicine
DX: J18.9 Pneumonia, unspecified organism (principal); J96.01 Acute respiratory failure with hypoxia; M79.89 Other specified soft tissue disorders; M06.4 Inflammatory polyarthropathy; E87.1 Hypo-osmolality and hyponatremia; E87.5 Hyperkalemia; R80.9 Proteinuria, unspecified; E88.09 Other disorders of plasma-protein metabolism, not elsewhere classified; D72.829 Elevated white blood cell count, unspecified; M79.10 Myalgia, unspecified site; F11.10 Opioid abuse, uncomplicated; F15.10 Other stimulant abuse, uncomplicated; K76.0 Fatty (change of) liver, not elsewhere classified
CPT/HCPCS: 36415; 71045-TC-FY; 71250-TC; 71275-TC; 76705-TC; 80048; 80053; 80061; 80076; 80307; 81003; 82248; 82550; 82565; 82728; 83516; 83520; 83615; 83655; 83721; 83735; 84100; 84110; 84155; 84156; 84165; 84443; 84484; 85025; 85027; 85379; 85651; 86038; 86140; 86225; 86256; 86618; 86704; 86706; 86707; 86708; 86709; 86769; 86780; 87040; 87086; 87340; 87389; 87522; 87899; 93005; 93010; 93926-TC; 93970-TC; 97116-GP; 97162-GP; 99285-25; J0131; J1100; Q9967; U0003

== ENCOUNTER 2022-05-24 14:44 | Inpatient (IN) | payer OTHER ==
[2022-05-24] MEDS ORDERED: ALBUTEROL SO4 2.5/IPRATROPIUM 0.5 INH SOL 3 ML VIAL.NEB. NEB ONE (16:33)
[2022-05-24 16:40] LABS: BASO % 0.5 % (0-2.0); EOS % 0.8 % (0-4.5); HEMATOCRIT 45.2 % (35.4-49); HEMOGLOBIN 14.9 GM/dL (11.7-16.9); LYMPH % 24.1 % (8-40); MCH 30.9 pg (25.7-33.7); MCHC 32.9 g/dl (32.0-35.9); MEAN CELL VOLUME 93.9 fl (80-96); MONO % 10.2 % (3.8-10.2); NEUT % 64.4 % (42.8-82.8); PLATELET COUNT 252 10^3/uL (134-434); RBC 4.81 M/mm3 (4.00-5.60); RDW 14.9 % (11.9-15.9); WHITE BLOOD COUNT 7.4 K/mm3 (4.0-10.0)
[2022-05-24 16:41] LABS: CALCIUM 8.8 mg/dL (8.5-10.1)
[2022-05-24 16:42] LABS: ALBUMIN 3.6 g/dl (3.4-5.0); BLOOD UREA NITROGEN 19.6 mg/dL (7-18)
[2022-05-24 16:45] LABS: CREATININE 1.1 mg/dL (0.55-1.3)
[2022-05-24 16:47] LABS: BILIRUBIN,TOTAL 0.9 mg/dL (0.2-1); TOT PROT 6.5 g/dl (6.4-8.2)
[2022-05-24] MEDS ORDERED: SODIUM CHLORIDE 0.9% 500 ML INFUS.BAG IV ONE (18:45)
[2022-05-24 20:56] LABS: N-TERMINAL BNP 6026.6 pg/ml (5-125)
[2022-05-24] MEDS ORDERED: LORazepam 2 MG/ML SDV VIAL IVPUSH ONE (21:45)
[2022-05-24] MEDS ORDERED: FUROSEMIDE 40 MG/4 ML INJECTABLE VIAL ONE (22:31)
[2022-05-24] MEDS ORDERED: methylPREDNISolone NA SUCC 125 MG/2 ML VIAL ONE ×2 (22:32→23:40)
[2022-05-24] MEDS ORDERED: RAPID SEQUENCE INTUBATION KIT NR ONE (22:47)
[2022-05-24 22:49] LABS: ARTERIAL BLD GAS O2 SATURATION 76.5 % (95-98); ARTERIAL BLOOD GAS BASE EXCESS -3.3 mmol/L (-2-2)
[2022-05-24] MEDS ORDERED: MIDAZOLAM HCL 2 MG/2 ML SINGLE DOSE VIAL ONE (22:54)
[2022-05-24] MEDS ORDERED: PROPOFOL 1,000,000 MCG/100 ML VIAL ONE (23:01)
[2022-05-24 23:33] LABS: URINE APPEARANCE CLEAR; URINE BILIRUBIN NEGATIVE (NEGATIVE); URINE COLOR YELLOW; URINE GLUCOSE (UA) NEGATIVE (NEGATIVE); URINE KETONE NEGATIVE (NEGATIVE); URINE LEUK ESTERASE NEGATIVE (NEGATIVE); URINE NITRITE NEGATIVE (NEGATIVE); URINE PROTEIN NEGATIVE (NEGATIVE); URINE UROBILINOGEN 0.2 mg/dL (0.2-1.0)
[2022-05-24] MEDS ORDERED: FUROSEMIDE 40 MG/4 ML INJECTABLE VIAL IVPUSH ONE (23:37)
[2022-05-24] MEDS ORDERED: methylPREDNISolone NA SUCC 125 MG/2 ML VIAL IVPUSH ONE (23:37)
[2022-05-24] MEDS: PROPOFOL 1,000,000 MCG/100 ML VIAL IVPB SCH (23:42)
[2022-05-24 23:43] LABS: ARTERIAL BLD GAS O2 SATURATION 96.7 % (95-98); ARTERIAL BLOOD GAS BASE EXCESS -4.4 mmol/L (-2-2); ARTERIAL BLOOD GAS PO2 110.4 mmHg (80-100)
[2022-05-24 23:50] LABS: ALLENS TEST POSITIVE; ARTERIAL BLOOD GAS pH 7.184 (7.350-7.450); VENT MODE A-A/C; VENT RATE 12
[2022-05-24] MEDS ORDERED: PROPOFOL 200 MG/20 ML VIAL IVPUSH ONE (23:57)
[2022-05-25] LABS: PHENCYCLIDINE,URINE NEGATIVE (NEGATIVE); URINE BENZODIAZEPINES NEGATIVE (NEGATIVE)
[2022-05-25 00:01] LABS: COCAINE, UR NEGATIVE (NEGATIVE); METHADONE, UR NEGATIVE (NEGATIVE); OPIATES, URI NEGATIVE (NEGATIVE)
[2022-05-25] MEDS ORDERED: MIDAZOLAM HCL 2 MG/2 ML SINGLE DOSE VIAL IVPUSH ONE (00:09)
[2022-05-25 00:15] LABS: URINE AMPHETAMINES POSITIVE (NEGATIVE); URINE BARBITURATES NEGATIVE (NEGATIVE)
[2022-05-25] MEDS ORDERED: PROPOFOL 200 MG/20 ML VIAL IVPUSH ONE (00:23)
[2022-05-25] MEDS ORDERED: FUROSEMIDE INJECTION 100 MG in DEXTROSE 5%-WATER - 90 ML IVPB SCH (00:30)
[2022-05-25] MEDS ORDERED: FENTANYL NS IVPB 500 MCG/100 ML BAG IVPB ONE (00:37)
[2022-05-25 00:42] LABS: INR 1.22 (0.83-1.09); PROTHROMBIN TIME (PATIENT) 14.1 SEC (9.7-13.0)
[2022-05-25 00:45] LABS: ACTIVATED PTT 28.3 SECONDS (25.2-36.5)
[2022-05-25] MEDS: FENTANYL NS IVPB 500 MCG/100 ML BAG IVPB SCH ×5 (00:45→22:45)
[2022-05-25 02:25] LABS: ALLENS TEST POSITIVE; ARTERIAL BLD GAS O2 SATURATION 95.8 % (95-98); ARTERIAL BLOOD GAS PO2 80.7 mmHg (80-100); ARTERIAL BLOOD GAS pH 7.389 (7.350-7.450)
[2022-05-25 02:26] LABS: VENT MODE A/C; VENT RATE 20
[2022-05-25] MEDS ORDERED: HEPARIN NA (PORCINE) 5,000 UNITS/ML 1ML VIAL SQ SCH (06:00)
[2022-05-25 07:17] LABS: HEMATOCRIT 43.7 % (35.4-49); HEMOGLOBIN 14.6 GM/dL (11.7-16.9); MCHC 33.4 g/dl (32.0-35.9); MEAN CELL VOLUME 92.9 fl (80-96); PLATELET COUNT 190 10^3/uL (134-434); RBC 4.71 M/mm3 (4.00-5.60); RDW 14.6 % (11.9-15.9); WHITE BLOOD COUNT 6.1 K/mm3 (4.0-10.0)
[2022-05-25 07:25] LABS: INR 1.28 (0.83-1.09); PROTHROMBIN TIME (PATIENT) 14.8 SEC (9.7-13.0)
[2022-05-25 07:26] LABS: ACTIVATED PTT 26.6 SECONDS (25.2-36.5)
[2022-05-25 07:53] LABS: CALCIUM 8.1 mg/dL (8.5-10.1)
[2022-05-25 07:54] LABS: ALBUMIN 3.3 g/dl (3.4-5.0); BLOOD UREA NITROGEN 19.4 mg/dL (7-18); MAGNESIUM 2.1 mg/dL (1.8-2.4)
[2022-05-25 07:58] LABS: PHOSPHOROUS 4.1 mg/dL (2.5-4.9)
[2022-05-25 07:59] LABS: TOT PROT 5.9 g/dl (6.4-8.2)
[2022-05-25] MEDS ORDERED: HEPARIN NA (PORCINE) 5,000 UNITS/ML 1ML VIAL IVPUSH PRN ×2 (08:01)
[2022-05-25 08:02] LABS: N-TERMINAL BNP 4730.9 pg/ml (5-125)
[2022-05-25] MEDS ORDERED: HEPARIN INFUSION - 25,000 UNITS/500 ML INFUS.BAG IVPB SCH (08:15)
[2022-05-25 08:35] LABS: ANISOCYTOSIS 1+; MACROCYTOSIS 0
[2022-05-25] MEDS: PROPOFOL 1,000,000 MCG/100 ML VIAL IVPB SCH ×3 (09:35→21:19)
[2022-05-25] MEDS: MUPIROCIN 2% TOPICAL OINTMENT FOR DECOLONIZATION NS SCH ×2 (09:35→21:20)
[2022-05-25] MEDS: PANTOPRAZOLE SODIUM 40 MG VIAL IVPUSH SCH (09:35)
[2022-05-25] MEDS: ENOXAPARIN NA (PORCINE) 100 MG/1 ML DISP.SYRIN SQ SCH (21:20)
[2022-05-25] MEDS: CHLORHEXIDINE GLUCONATE 4% CLEANSER FOR DECOLONIZATION TP SCH (21:20)
[2022-05-26] MEDS: PROPOFOL 1,000,000 MCG/100 ML VIAL IVPB SCH ×2 (01:21→07:01)
[2022-05-26] MEDS ORDERED: FENTANYL NS IVPB 500 MCG/100 ML BAG IVPB SCH (06:45)
[2022-05-26 07:05] LABS: HEMATOCRIT 47.1 % (35.4-49); HEMOGLOBIN 15.7 GM/dL (11.7-16.9); MCH 31.2 pg (25.7-33.7); MCHC 33.2 g/dl (32.0-35.9); MEAN CELL VOLUME 93.7 fl (80-96); PLATELET COUNT 174 10^3/uL (134-434); RBC 5.03 M/mm3 (4.00-5.60); RDW 14.9 % (11.9-15.9); WHITE BLOOD COUNT 10.3 K/mm3 (4.0-10.0)
[2022-05-26 07:31] LABS: ALBUMIN 3.1 g/dl (3.4-5.0); CALCIUM 8.2 mg/dL (8.5-10.1)
[2022-05-26 07:32] LABS: BLOOD UREA NITROGEN 25.3 mg/dL (7-18); MAGNESIUM 2.2 mg/dL (1.8-2.4)
[2022-05-26 07:35] LABS: CREATININE 1.2 mg/dL (0.55-1.3); PHOSPHOROUS 4.1 mg/dL (2.5-4.9)
[2022-05-26 07:36] LABS: BILIRUBIN,TOTAL 0.8 mg/dL (0.2-1)
[2022-05-26] MEDS: ACETAMINOPHEN 1000 MG/100 ML BAG IVPB PRN ×3 (09:10→21:39)
[2022-05-26] MEDS: PANTOPRAZOLE SODIUM 40 MG VIAL IVPUSH SCH (09:11)
[2022-05-26] MEDS: FUROSEMIDE 40 MG/4 ML INJECTABLE VIAL IVPUSH SCH (09:11)
[2022-05-26] MEDS: ENOXAPARIN NA (PORCINE) 100 MG/1 ML DISP.SYRIN SQ SCH ×2 (09:11→21:40)
[2022-05-26] MEDS: MUPIROCIN 2% TOPICAL OINTMENT FOR DECOLONIZATION NS SCH ×2 (09:11→21:40)
[2022-05-26] MEDS ORDERED: LORazepam 2 MG/ML SDV VIAL IVPUSH PRN (10:55)
[2022-05-26] MEDS ORDERED: PIPERACILLIN/TAZOB 3.375 GM 3.375 GM in DEXTROSE 5%-WATER - 50 ML IVPB SCH (11:15)
[2022-05-26] MEDS: PIPERACILLIN/TAZOB 3.375 GM 3.375 GM in DEXTROSE 5%-WATER - 50 ML IVPB SCH (20:14)
[2022-05-26] MEDS: CHLORHEXIDINE GLUCONATE 4% CLEANSER FOR DECOLONIZATION TP SCH (21:40)
[2022-05-26] MEDS: SACUBITRIL/VALSARTAN 24 MG-26 MG TABLET PO SCH (21:40)
[2022-05-27] MEDS: PIPERACILLIN/TAZOB 3.375 GM 3.375 GM in DEXTROSE 5%-WATER - 50 ML IVPB SCH ×3 (03:54→21:11)
[2022-05-27 06:43] LABS: HEMATOCRIT 45.9 % (35.4-49); HEMOGLOBIN 15.2 GM/dL (11.7-16.9); MCH 31.2 pg (25.7-33.7); MCHC 33.1 g/dl (32.0-35.9); MEAN CELL VOLUME 94.3 fl (80-96); MEAN PLT VOLUME 9.2 fl (7.5-11.1); PLATELET COUNT 144 10^3/uL (134-434); RBC 4.87 M/mm3 (4.00-5.60); RDW 14.8 % (11.9-15.9); WHITE BLOOD COUNT 10.4 K/mm3 (4.0-10.0)
[2022-05-27] MEDS ORDERED: ALBUTEROL SO4 2.5/IPRATROPIUM 0.5 INH SOL 3 ML VIAL.NEB. NEB PRN (06:52)
[2022-05-27 06:59] LABS: CALCIUM 7.7 mg/dL (8.5-10.1)
[2022-05-27 07:00] LABS: ALBUMIN 2.8 g/dl (3.4-5.0); BLOOD UREA NITROGEN 21.4 mg/dL (7-18)
[2022-05-27 07:04] LABS: TOT PROT 5.6 g/dl (6.4-8.2)
[2022-05-27 07:05] LABS: MAGNESIUM 2.2 mg/dL (1.8-2.4)
[2022-05-27 07:06] LABS: N-TERMINAL BNP 1210.4 pg/ml (5-125)
[2022-05-27 07:07] LABS: CREATININE 0.8 mg/dL (0.55-1.3); PHOSPHOROUS 2.4 mg/dL (2.5-4.9)
[2022-05-27 07:08] LABS: BILIRUBIN,TOTAL 1.5 mg/dL (0.2-1)
[2022-05-27] MEDS: MUPIROCIN 2% TOPICAL OINTMENT FOR DECOLONIZATION NS SCH ×2 (09:07→21:11)
[2022-05-27] MEDS: FUROSEMIDE 40 MG/4 ML INJECTABLE VIAL IVPUSH SCH (09:07)
[2022-05-27] MEDS: PANTOPRAZOLE SODIUM 40 MG VIAL IVPUSH SCH (09:07)
[2022-05-27] MEDS: SACUBITRIL/VALSARTAN 24 MG-26 MG TABLET PO SCH ×2 (09:07→21:11)
[2022-05-27] MEDS: ENOXAPARIN NA (PORCINE) 100 MG/1 ML DISP.SYRIN SQ SCH ×2 (09:07→21:10)
[2022-05-27 12:24] LABS: HEMATOCRIT 48.4 % (35.4-49); HEMOGLOBIN 15.9 GM/dL (11.7-16.9); MCH 30.9 pg (25.7-33.7); MCHC 32.8 g/dl (32.0-35.9); MEAN CELL VOLUME 94.3 fl (80-96); MEAN PLT VOLUME 8.1 fl (7.5-11.1); PLATELET COUNT 150 10^3/uL (134-434); RBC 5.13 M/mm3 (4.00-5.60); RDW 14.9 % (11.9-15.9); WHITE BLOOD COUNT 10.1 K/mm3 (4.0-10.0)
[2022-05-27] MEDS: ACETAMINOPHEN 500 MG TABLET (FP) PO PRN (13:17)
[2022-05-27] MEDS ORDERED: PIPERACILLIN/TAZOB 3.375 GM 3.375 GM in DEXTROSE 5%-WATER - 50 ML IVPB SCH (18:00)
[2022-05-27] MEDS ORDERED: PIPERACILLIN/TAZOBACTAM 3.375 GM VIAL IVPB ONE (21:08)
[2022-05-27] MEDS: CHLORHEXIDINE GLUCONATE 4% CLEANSER FOR DECOLONIZATION TP SCH (21:11)
[2022-05-28] MEDS: ACETAMINOPHEN 500 MG TABLET (FP) PO PRN (00:06)
[2022-05-28] MEDS: PIPERACILLIN/TAZOB 3.375 GM 3.375 GM in DEXTROSE 5%-WATER - 50 ML IVPB SCH ×2 (05:32→11:53)
[2022-05-28 07:19] LABS: HEMATOCRIT 48.3 % (35.4-49); MCH 31.4 pg (25.7-33.7); MCHC 33.1 g/dl (32.0-35.9); MEAN CELL VOLUME 94.8 fl (80-96); MEAN PLT VOLUME 9.3 fl (7.5-11.1); PLATELET COUNT 145 10^3/uL (134-434); RDW 14.7 % (11.9-15.9); WHITE BLOOD COUNT 7.8 K/mm3 (4.0-10.0)
[2022-05-28 07:40] LABS: CALCIUM 8.1 mg/dL (8.5-10.1)
[2022-05-28 07:41] LABS: ALBUMIN 2.7 g/dl (3.4-5.0); BLOOD UREA NITROGEN 18.9 mg/dL (7-18); MAGNESIUM 2.2 mg/dL (1.8-2.4)
[2022-05-28 07:43] LABS: BILIRUBIN,TOTAL 0.9 mg/dL (0.2-1); CREATININE 0.8 mg/dL (0.55-1.3); PHOSPHOROUS 2.7 mg/dL (2.5-4.9); TOT PROT 5.7 g/dl (6.4-8.2)
[2022-05-28] MEDS: ENOXAPARIN NA (PORCINE) 100 MG/1 ML DISP.SYRIN SQ SCH ×2 (09:34→22:11)
[2022-05-28] MEDS: PANTOPRAZOLE SODIUM 40 MG VIAL IVPUSH SCH (09:34)
[2022-05-28] MEDS: FUROSEMIDE 40 MG/4 ML INJECTABLE VIAL IVPUSH SCH (09:34)
[2022-05-28] MEDS: MUPIROCIN 2% TOPICAL OINTMENT FOR DECOLONIZATION NS SCH ×2 (09:34→22:10)
[2022-05-28] MEDS: SACUBITRIL/VALSARTAN 24 MG-26 MG TABLET PO SCH ×2 (09:34→22:10)
[2022-05-28] MEDS: VANCOMYCIN/WATER 1250 MG 1,250 MG/250 ML BAG IVPB SCH (14:05)
[2022-05-28] MEDS: guaiFENesin 200 MG/10 ML 10 ML UNIT-DOSE CUPS PO PRN (15:59)
[2022-05-28] MEDS ORDERED: BENZOCAINE/MENTH/CETYLPYRD CL 1 EACH LOZENGE MM PRN (17:12)
[2022-05-28] MEDS ORDERED: LEVALBUTEROL HCL 0.31 MG/3 ML VIAL.NEB IH PRN (17:41)
[2022-05-28] MEDS: CHLORHEXIDINE GLUCONATE 4% CLEANSER FOR DECOLONIZATION TP SCH (22:11)
[2022-05-29] MEDS ORDERED: METOPROLOL TARTRATE 25 MG TABLET (FP) PO SCH (03:50)
[2022-05-29] MEDS: METOPROLOL TARTRATE 5 MG/5 ML VIAL IVPUSH PRN ×2 (04:16→16:46)
[2022-05-29] MEDS ORDERED: METOPROLOL TARTRATE 5 MG/5 ML VIAL IVPUSH ONE (05:41)
[2022-05-29 09:05] LABS: BASO % 0.3 % (0-2.0); HEMOGLOBIN 17.7 GM/dL (11.7-16.9); MCH 31.7 pg (25.7-33.7); MCHC 33.4 g/dl (32.0-35.9); MEAN CELL VOLUME 94.9 fl (80-96); MEAN PLT VOLUME 8.9 fl (7.5-11.1); MONO % 13.3 % (3.8-10.2); NEUT % 66.4 % (42.8-82.8); PLATELET COUNT 223 10^3/uL (134-434); RBC 5.58 M/mm3 (4.00-5.60); RDW 14.8 % (11.9-15.9); WHITE BLOOD COUNT 9.4 K/mm3 (4.0-10.0)
[2022-05-29 09:11] LABS: CALCIUM 8.3 mg/dL (8.5-10.1)
[2022-05-29] MEDS: MUPIROCIN 2% TOPICAL OINTMENT FOR DECOLONIZATION NS SCH ×2 (09:12→21:54)
[2022-05-29 09:13] LABS: BLOOD UREA NITROGEN 23.5 mg/dL (7-18); MAGNESIUM 2.4 mg/dL (1.8-2.4)
[2022-05-29 09:15] LABS: CREATININE 1.1 mg/dL (0.55-1.3)
[2022-05-29 09:17] LABS: BILIRUBIN,TOTAL 0.9 mg/dL (0.2-1); TOT PROT 6.4 g/dl (6.4-8.2)
[2022-05-29] MEDS: ENOXAPARIN NA (PORCINE) 100 MG/1 ML DISP.SYRIN SQ SCH ×2 (09:22→21:53)
[2022-05-29] MEDS: PANTOPRAZOLE 40 MG TABLET PO SCH (09:22)
[2022-05-29] MEDS: FUROSEMIDE 40 MG/4 ML INJECTABLE VIAL IVPUSH SCH (09:28)
[2022-05-29] MEDS: SACUBITRIL/VALSARTAN 24 MG-26 MG TABLET PO SCH ×2 (09:28→21:54)
[2022-05-29] MEDS ORDERED: metoPROLOL SUCCINATE 25 MG TAB.SR.24H (FP) PO SCH (10:00)
[2022-05-29] MEDS ORDERED: PHENOL 177 ML SPRAY BOTTLE MM PRN (11:08)
[2022-05-29] MEDS ORDERED: metoPROLOL SUCCINATE 25 MG TAB.SR.24H (FP) PO ONE ×2 (11:45→12:11)
[2022-05-29] MEDS: POLYETHYLENE GLYCOL (HEALTHYLAX) 3350 17 GM PACKET PO SCH (12:00)
[2022-05-29] MEDS: NYSTATIN 500,000 UNITS/5 ML SUSPENSION PO SCH ×2 (12:13→18:25)
[2022-05-29] MEDS: guaiFENesin 200 MG/10 ML 10 ML UNIT-DOSE CUPS PO PRN (12:50)
[2022-05-29 14:14] VITALS: BMI 28.3
[2022-05-29] MEDS: VANCOMYCIN/WATER 1250 MG 1,250 MG/250 ML BAG IVPB SCH (14:28)
[2022-05-29] MEDS: MAG HYDROX/ALH/SMC/DPHA/LIDO 240 ML MOUTHWASH MM SCH (18:26)
[2022-05-29] MEDS: CHLORHEXIDINE GLUCONATE 4% CLEANSER FOR DECOLONIZATION TP SCH (21:54)
[2022-05-30] MEDS: NYSTATIN 500,000 UNITS/5 ML SUSPENSION PO SCH ×5 (01:39→23:30)
[2022-05-30] MEDS: MAG HYDROX/ALH/SMC/DPHA/LIDO 240 ML MOUTHWASH MM SCH ×5 (01:39→23:30)
[2022-05-30] MEDS: VANCOMYCIN/WATER FOR INJ (PEG) 1,000 MG/200 ML BAG IVPB SCH ×2 (01:39→14:00)
[2022-05-30 08:49] LABS: BASO % 0.2 % (0-2.0); EOS % 3.7 % (0-4.5); HEMATOCRIT 47.6 % (35.4-49); HEMOGLOBIN 15.6 GM/dL (11.7-16.9); LYMPH % 21.8 % (8-40); MCH 31.1 pg (25.7-33.7); MCHC 32.7 g/dl (32.0-35.9); MEAN CELL VOLUME 94.9 fl (80-96); MONO % 12.9 % (3.8-10.2); NEUT % 61.4 % (42.8-82.8); PLATELET COUNT 202 10^3/uL (134-434); RBC 5.01 M/mm3 (4.00-5.60); RDW 14.5 % (11.9-15.9); WHITE BLOOD COUNT 6.6 K/mm3 (4.0-10.0)
[2022-05-30 09:04] LABS: ALBUMIN 2.7 g/dl (3.4-5.0); BLOOD UREA NITROGEN 22.2 mg/dL (7-18); CALCIUM 7.8 mg/dL (8.5-10.1); MAGNESIUM 2.2 mg/dL (1.8-2.4)
[2022-05-30 09:07] LABS: CREATININE 0.9 mg/dL (0.55-1.3)
[2022-05-30 09:09] LABS: BILIRUBIN,TOTAL 0.7 mg/dL (0.2-1); TOT PROT 5.6 g/dl (6.4-8.2)
[2022-05-30] MEDS: POLYETHYLENE GLYCOL (HEALTHYLAX) 3350 17 GM PACKET PO SCH (09:42)
[2022-05-30] MEDS: PANTOPRAZOLE 40 MG TABLET PO SCH (09:42)
[2022-05-30] MEDS: SACUBITRIL/VALSARTAN 24 MG-26 MG TABLET PO SCH (09:42)
[2022-05-30] MEDS: FUROSEMIDE 40 MG/4 ML INJECTABLE VIAL IVPUSH SCH (09:42)
[2022-05-30] MEDS: ENOXAPARIN NA (PORCINE) 100 MG/1 ML DISP.SYRIN SQ SCH (09:42)
[2022-05-30 17:10] VITALS: RESP 20
[2022-05-30] MEDS ORDERED: ACETAMINOPHEN 500 MG TABLET (FP) PO PRN (19:49)
[2022-05-30] MEDS ORDERED: LORazepam 2 MG/ML SDV VIAL IVPUSH PRN (19:49)
[2022-05-30] MEDS ORDERED: CHLORHEXIDINE GLUCONATE 4% CLEANSER FOR DECOLONIZATION TP SCH (22:00)
[2022-05-30] MEDS ORDERED: ENOXAPARIN NA (PORCINE) 100 MG/1 ML DISP.SYRIN SQ SCH (22:00)
[2022-05-30] MEDS ORDERED: SACUBITRIL/VALSARTAN 24 MG-26 MG TABLET PO SCH (22:00)
[2022-05-30 23:35] VITALS: PULSE 113; TEMP 97.8
[2022-05-31] MEDS: VANCOMYCIN/WATER FOR INJ (PEG) 1,000 MG/200 ML BAG IVPB SCH (01:22)
[2022-05-31] MEDS: NYSTATIN 500,000 UNITS/5 ML SUSPENSION PO SCH (06:47)
[2022-05-31 06:58] VITALS: BP 130/71
[2022-05-31] MEDS ORDERED: FUROSEMIDE 40 MG/4 ML INJECTABLE VIAL IVPUSH SCH (10:00)
== END 2022-05-31 08:23 | disposition left against medical advice (07) | DRG 208 ==
LOC: JER 14:44 → JERFT 14:44 → JERBED 22:01 → JICU 05-25 00:43 → J4S 05-28 22:41
PROVIDERS: ADMIT Internal Medicine Pulmonary Disease; ATTEND Nurse Practitioner Acute Care
PROC: 5A1945Z Respiratory Ventilation, 24-96 Consecutive Hours (ICD-10-PCS; principal; 2022-05-24)
PROC: 0BH17EZ Insertion of Endotracheal Airway into Trachea, Via Natural or Artificial Opening (ICD-10-PCS; 2022-05-24)
DX: J15.212 Pneumonia due to Methicillin resistant Staphylococcus aureus (principal); J96.01 Acute respiratory failure with hypoxia; J81.0 Acute pulmonary edema; I50.21 Acute systolic (congestive) heart failure; E87.29 Other acidosis; B37.0 Candidal stomatitis; N39.0 Urinary tract infection, site not specified; F41.9 Anxiety disorder, unspecified; F15.10 Other stimulant abuse, uncomplicated; F14.10 Cocaine abuse, uncomplicated; Z86.16 Personal history of COVID-19; R74.01 Elevation of levels of liver transaminase levels; R00.2 Palpitations; F19.10 Other psychoactive substance abuse, uncomplicated; K74.60 Unspecified cirrhosis of liver; I27.20 Pulmonary hypertension, unspecified; Z53.29 Procedure and treatment not carried out because of patient's decision for other reasons
CPT/HCPCS: 0241U-QW; 36415; 36600; 71045-TC-FY; 71046-TC-FY; 71275-TC; 80053; 80061; 80307; 81003; 82550; 82553; 82803; 83036; 83735; 83880; 84100; 84439; 84443; 84484; 85025; 85027; 85610; 85730; 87040; 87070; 87086; 87186; 87205; 87899; 93005; 93010; 93306-TC; 93970-TC; 94002; 97116-GP; 97162-GP; 99291; 99292; J1644; Q9967